=== PATIENT | female | born 1975 | race Caucasian/White ===

== ENCOUNTER 2020-03-20 09:04 | Outpatient (CLI) | payer BC, SELFPAY ==
--- NOTE | 2020-03-20 09:15 | US_ITS ---
WS: [id number] THYROID ULTRASOUND (TI-RADS CRITERIA) History: Follow-up nodules.. Technique: Ultrasound examination of the thyroid and adjacent soft tissues is performed. FINDINGS: RIGHT thyroid lobe: 4.1 x 1.0 x 1.6 cm. LEFT thyroid lobe: 4.0 x 1.4 x 1.3 cm. Isthmus: 0.4 cm. Estimated total number of nodules greater than or equal to 1 cm: 0 Number of spongiform nodules greater than or equal to 2 cm not described below (TR1): 1 (LEFT inferio r lobe). Number of mixed cystic and solid nodules greater than or equal to 1.5 cm not described below (TR2): 0 US/US thyroid [id number] Impression: TR1 Recommendation: No FNA at this time.
== END 2020-03-20 09:05 | disposition home or self-care (01) ==
LOC: US 09:06
PROVIDERS: PCP Family Medicine; Visit Provider Family Medicine
DX: E04.1 Nontoxic single thyroid nodule (principal)
CPT/HCPCS: 76536

== ENCOUNTER → 2020-03-30 16:38 | Outpatient (BNVA) | payer BC, SELFPAY | PROVIDERS: PCP Family Medicine; Visit Provider Dermatology | DX: D48.9 Neoplasm of uncertain behavior, unspecified (principal) | CPT/HCPCS: 88304 ==

== ENCOUNTER → 2020-04-24 10:56 | Outpatient (BNVA) | payer BC, SELFPAY | PROVIDERS: PCP Family Medicine; Visit Provider Dermatology | DX: D48.9 Neoplasm of uncertain behavior, unspecified (principal) | CPT/HCPCS: 88304 ==

== ENCOUNTER 2021-09-08 13:03 | Emergency (ER) | payer BC, SELFPAY ==
[2021-09-08 13:08] VITALS: BP 143/89; PULSE 101; RESP 16; TEMP 36.9; O2SAT 96; BMI 42.0
--- NOTE | 2021-09-08 13:29 | XRR_ITS ---
PROCEDURE INFORMATION: Exam: XR Left Finger(s) Exam date and time: 09/08/2021 1:37 PM Age: 46 years old Clinical indication: Injury or trauma; Dislocation; Left; Patient HX: Fall against wall with outstretched hand - obvious deformity L middle finger; Additional info: Trauma, deformity TECHNIQUE: Imaging protocol: XR Left fingers. Views: Minimum 2 views. COMPARISON: No relevant prior studies available. FINDINGS: Bones/joints: Third digit middle phalanx is subluxed 7 mm ulnarly in relation to the proximal phalanx. There is ulnar angulation as well. Soft tissues: There is edema in the soft tissues. XR/XR finger LT min 2V [id number] IMPRESSION: There are digit middle phalanx is subluxed and angulated ulnarly in relation to the proximal phalanx.
--- NOTE | 2021-09-08 13:30 | ED_ITS ---
HPI - Extremity Injury (Upper) General: Chief Complaint: Extremity Injury, Upper Stated Complaint: finger injury Time Seen by Provider: 09/08/21 13:06 Source: patient Mode of arrival: ambulatory Limitations: no limitations History of Present Illness: Patient is a nice 46-year-old female who presents to ED today for evaluation of a left finger injury and deformity. Patient states she was going up a flight of stairs when she tripped and fell and states she caught the finger on a door and states she immediately noticed deformity. She has no other injuries or complaints at this time. MD complaint: injury to: left and finger Onset (ago): hour(s) Other Extremity Injury: Left: fingers Other injuries: none Place: home Severity: moderate Relieving factors: immobilization Exacerbating factors: movement of extremity Context: direct blow Associated symptoms: Reports no associated symptoms Review of Systems Musc: Reports: extremity pain (L middle finger); Denies: extremity swelling Neuro: Denies: numbness in extremities or sensory changes PFSH ED PFSH: Medical History BCC (basal cell carcinoma of skin) History of non-Hodgkin's lymphoma Hodgkins lymphoma Surgical History History of hysterectomy History of shoulder surgery Family History Other Cancer Social History Smoking and tobacco status: former smoker History of recent travel: No Physical Exam Const: COMMON NORMALS: no acute distress, patient oriented x3, no limitations and alert Extremity: GENERAL: Yes normal exam except as noted LEFT UPPER EXTREMITY: Yes hand & digits (deformity noted to L 3rd PIP joint consistent with fx and/or dislocation) Left hand and digits: Yes neurovascular exam (normal) Neuro: COMMON NORMALS: patient oriented x3 and no sensory deficits noted SENSORIUM/ORIENTATION: Yes alert Procedures Orthopedic Joint Reduction Joint #1: Side: left Joint Reduction Location: finger (L 3rd PIP joint) Analgesia: nerve block Local Anesthesia: lidocaine 1% Amount of anesthesic used (mL): 3.0 Technique used: traction/counter-traction Post-reduction neuro exam: intact Post-reduction vascular: intact Post Reduction X-Ray Obtained: Yes Post Reduction X-Ray Results: reduced Splint Applied: Yes Patient Tolerated Procedure: well Course Vital Signs: Vital signs: Vital Signs Temperature 98.4 F 09/08/21 13:08 Pulse Rate 101 H 09/08/21 13:08 Respiratory Rate 18 09/08/21 13:46 Blood Pressure 143/89 09/08/21 13:08 Pulse Oximetry 96 09/08/21 13:08 MDM - Extremity Injury (Upper) Medical Decision Making PIP joint successfully reduced. Finger splinted. Radiology over-read after DC showed an extremely small bony fragment on one view suspicious for avulsion fracture. I had already placed referral to orthopedics so will have her keep this appointment. Lab Data Radiology Impressions Finger X-Ray 09/08/21 13:52 IMPRESSION: 1. Currently the 3rd digit proximal interphalangeal joint is in satisfactory alignment, status post reduction. 2. There is a tiny curvilinear hyperdensity in the soft tissues adjacent to the head of the 3rd digit proximal phalanx. This is seen only on 1 image however raises concern for a tiny avulsion fracture. Discharge Plan Discharge Patient Disposition: Home Clinical Impression: Closed traumatic PIP dislocation Condition: Stable Prescriptions: New acetaminophen-codeine 300-30 mg tablet 1 tab PO Q6H PRN (Reason: pain) Qty: 10 0RF No Action Erivedge 150 mg capsule 150 mg PO DAILY Qty: 30 4RF escitalopram oxalate [Lexapro] 10 mg tablet 10 mg PO DAILY 0RF multivitamin [Daily Multi-Vitamin] Tablet 1 tab PO DAILY 0RF Zyrtec 10 mg capsule 10 mg PO DAILY 0RF Discharge Orders: Discharge ED (Routine); Ordered 09/08/21 Ordered By: Barbra Zhang Referrals: Kedar Rubi MD [Primary Care Provider] - Patient Instructions: Closed Reduction (ED), Finger Dislocation (ED) Coding Level of Care Code ED [place] Supervisor for [employer] Fwd Exam Expanded Problem Focused
[2021-09-08 13:46] VITALS: RESP 18
[2021-09-08] MEDS: morphine 4 mg/mL SDV 1 mL IM (13:46)
[2021-09-08] MEDS: ondansetron 2 mg/ML SDV 2 mL 4 MG IM (13:47)
--- NOTE | 2021-09-08 13:52 | XRR_ITS ---
PROCEDURE INFORMATION: Exam: XR Left Finger(s) Exam date and time: 09/08/2021 1:59 PM Age: 46 years old Clinical indication: Patient HX: Post reduction L middle finger dislocation; Additional info: Post-reduction TECHNIQUE: Imaging protocol: XR Left fingers. Views: Minimum 2 views. COMPARISON: CR XR finger LT min 2V [id number] 09/08/2021 1:37 PM FINDINGS: Bones/joints: Currently the 3rd digit proximal interphalangeal joint is in satisfactory alignment, status post reduction.There is a tiny curvilinear hyperdensity in the soft tissues adjacent to the head of the 3rd digit proximal phalanx. This is seen only on 1 image however raises concern for a tiny avulsion fracture. Soft tissues: There is edema in the soft tissues. XR/XR finger LT min 2V [id number] IMPRESSION: 1. Currently the 3rd digit proximal interphalangeal joint is in satisfactory alignment, status post reduction. 2. There is a tiny curvilinear hyperdensity in the soft tissues adjacent to the head of the 3rd digit proximal phalanx. This is seen only on 1 image however raises concern for a tiny avulsion fracture.
--- NOTE | 2021-09-10 12:04 | DCPLANNER ---
Addendum entered by Prudence Moreno 10/17/21 21:11: Patient had a follow up appointment scheduled with ortho - patient did attend appointment. Addendum entered by Prudence Moreno 09/11/21 08:18: Patient has a follow up appointment scheduled for Saturday, September 11, 2021 at 11:[address] Gonzalez at ortho. Clinic will call patient with appointment information. Original Note: cook manager had message to schedule a follow up appointment for patient with ortho. cook manager sent patients information to the front staff at ortho thru the [employer] messaging system. Patients information will be printed and reviewed. Clinic will call patient with appointment information.
== END 2021-09-08 14:27 | disposition home or self-care (01) ==
PROVIDERS: Emergency Provider Physician Assistant; PCP Family Medicine
DX: S63.283A Dislocation of proximal interphalangeal joint of left middle finger, initial encounter (principal); W10.8XXA Fall (on) (from) other stairs and steps, initial encounter; Y92.009 Unspecified place in unspecified non-institutional (private) residence as the place of occurrence of the external cause
CPT/HCPCS: 26770; 73140; 96372; 99283; J2270; J2405

== ENCOUNTER → 2021-09-17 09:38 | Outpatient (BNVA) | payer BC, SELFPAY | PROVIDERS: PCP Family Medicine; Visit Provider Obstetrics & Gynecology | DX: N81.10 Cystocele, unspecified (principal); N39.3 Stress incontinence (female) (male) | CPT/HCPCS: 81000 ==

== ENCOUNTER → 2021-10-08 09:53 | Outpatient (BNVA) | payer BC, SELFPAY | PROVIDERS: PCP Family Medicine; Visit Provider Obstetrics & Gynecology | DX: Z01.812 Encounter for preprocedural laboratory examination (principal); N39.3 Stress incontinence (female) (male); N81.10 Cystocele, unspecified | CPT/HCPCS: 80053; 81000; 85025; 86850; 86900 ==

== ENCOUNTER 2021-10-11 08:39 | Observation (INO) | payer BC, SELFPAY ==
--- NOTE | 2021-10-08 14:03 | ANES.PREANE2 ---
Pre-Anesthetic Assessment Height/Weight: Height 1.57 m Weight 104.326 kg Operation Date: 10/11/21 07:00 Proposed Procedures p Anterior Repair augmented with [id number]/n39.3/n81.10(Not Applicable) - Jose Ramon Camarena MD s Sling(Not Applicable) - Jose Ramon Camarena MD Familial anesthetic complications: none Was Beta Maricruz taken within 24 hours: N/A Was Clonidine taken within 24 hours: N/A Social Alcohol (daily) and No tobacco Exam alert, oriented x 3, clear to auscultation bilaterally and regular rate & rhythm Airway Submandibular: within normal limits Cervical ROM: within normal limits Mallampati: Class II Dentition: full CV/HEM h/o lymphoma Metabolic Morbid Obesity Anesthetic Plan ASA status: 2 Anesthesia: General Medications/Allergies Home Medications Medication Instructions Recorded Confirmed Last Taken Type cetirizine 10 mg capsule (Zyrtec) 10 mg PO DAILY 03/30/20 10/08/21 Unknown History escitalopram oxalate 10 mg tablet 10 mg PO DAILY 03/30/20 10/08/21 Unknown History (Lexapro) multivitamin (Daily Multi-Vitamin) 1 tab PO DAILY 03/30/20 10/08/21 Unknown History vismodegib 150 mg capsule 150 mg PO DAILY #30 cap 07/30/21 10/08/21 Unknown Rx (Erivedge) Allergies Allergy/AdvReac Type Severity Reaction Status Date / Time azithromycin [From Zithromax] Allergy rash Verified 10/08/21 13:43 [facility] Anesthesia Medical History BCC (basal cell carcinoma of skin) History of non-Hodgkin's lymphoma Hodgkins lymphoma Surgical History History of hysterectomy History of shoulder surgery Family History Mother Colon cancer, Onset Age: 65 Denies family history of Ovarian cancer Diabetes Clotting disorder Heart disease Hyperlipidemia Breast cancer Anesthesia complication Bleeding disorder Hypertension Uterine cancer Thyroid condition Stroke Social History Smoking and tobacco status: former smoker History of recent travel: No Data Anesthesia Cardiac Studies: No Data to Display
[2021-10-11] VITALS (17 sets, daily range): BP systolic 101–162; BP diastolic 61–98; PULSE 77–98; RESP 15–27; TEMP 36.3–37; O2SAT 93–100
[2021-10-11] MEDS: sodium chloride 0.9% 1,000 ML 30 ML IV (06:21)
[2021-10-11] MEDS: sodium chloride 0.9% 500 ML IV (06:21)
[2021-10-11] MEDS: scopolamine 1.5 Patch 1 PATCH TRANSDERMA (06:22)
--- NOTE | 2021-10-11 06:43 | W.PM.OPSUD ---
Surgery/Procedure H&P Update DATE OF PROCEDURE: October 11, 2021 DATE H&P PERFORMED: 10/08/21 H&P UPDATE INFORMATION: I have reviewed H&P completed within last 30 days, I have examined patient prior to procedure and No changes to prior documentation PREOP DIAGNOSIS: Cystocele stage II, stress urinary incontinence PLANNED PROCEDURE: Operation Date: 10/11/21 07:00 Proposed Procedures p Anterior Repair augmented with [id number]/n39.3/n81.10(Not Applicable) - Jose Ramon Camarena MD s Sling(Not Applicable) - Jose Ramon Camarena MD
--- NOTE | 2021-10-11 06:55 | P.ANESUD_ITS ---
Pre-Anesthetic Update Pre-Anesthetic Assessment: Date of Surgery/Procedure: 10/11/21 Preop Sindy gnosis: Cystocele stage II, stress urinary incontinence Proposed Procedure: Operation Date: 10/11/21 07:00 Proposed Procedures p Anterior Repair augmented with [id number]/n39.3/n81.10(Not Applicable) - Jose Ramon Camarena MD s Sling(Not Applicable) - Jose Ramon Camarena MD Any changes to Pre-Anesthetic Assessment?: No Last Intake: Intake Last Liquid Date 10/10/21 Last Liquid Time 21:00 Last Solid Date 10/10/21 Last Solid Time 19:00 Vitals: Temperature 98.0 F 10/11/21 06:09 Temperature Source Temporal Artery S can 10/11/21 06:09 Pulse Rate 77 10/11/21 06:09 Respiratory Rate 18 10/11/21 06:09 Blood Pressure 125/89 10/11/21 06:09 Blood Pressure Sisi n 101 10/11/21 06:09 Pulse Oximetry 95 10/11/21 06:09 Oxygen Delivery Me thod 10/11/21 06:10 Exam: Pre-Anes Outpt Exam: alert, oriented x 3, clear to auscultation bilaterally and regular rate & rhythm Cardiac Studies: No Data to Display
[2021-10-11] MEDS: estrogens Conjugated Cream 30 gm 30 APPLIC (08:21)
--- NOTE | 2021-10-11 08:30 | PM.OP ---
Operative Report Date of procedure: October 11, 2021 Pre-op diagnosis: Preop Diagnosis Cystocele stage II, stress urinary incontinence Post-op diagnosis: Same as above Procedure done: Anterior colporrhaphy augmented with allograft. Single incision mid urethral sling. Cystoscopy. Implants: Coloplast mid urethral sling Specimens removed/disposition: None Pathology: None Estimated blood loss (mL): 100 IV fluids (mL): 600 Urine output (mL): 400 Complications: None. Findings: Cystocele stage III Procedure: After obtaining informed consent, the patient was taken to the operating room and placed in the supine position, given general anesthesia, and prepped and draped in sterile fashion. The abdomen, vulva and vagina were prepped and draped in a sterile manner. A time out procedure was performed. The anterior vaginal mucosa beneath the midurethra was infiltrated with 0.5% Marcaine with epinephrine. A vertical midline incision was made beneath the midurethra, nearly 1.5 cm length. Careful submucosal dissection was performed bilaterally up to the interior portion of the inferior pubic ramus. The insertion of adductor longus tendon on the patient?s pubic ramus was identified as reference land yessenia. Palpated the notch along the internal edge of ischiopubic ramus where the adductor longus tendon and the inferior pubic ramus meet. The Altis single incision sling (SIS) was selected. Then the needle of the SIS inserted aiming at the location of this notch. One of the integrated self-fixating tips place onto the needle by sliding it over the end of the needle. The needle/sling assembly was inserted toward the location of identified reference notch making sure that the flat of the handle is perpendicular to the desired path. The needle was tracked along the posterior surface of the ischiopubic ramus until the midline yessenia on the mesh is approximately at the midline position under the urethra. The needle was removed and the same was repeated on the contralateral side until the appropriate sling tension under the urethra was achieved ensuring that the mesh lays flat. The needle was removed and vaginal incision was closed in a running interlocking fashion with 2-0 Vicryl. Then proceeded to perform the anterior colporrhaphy. The vaginal mucosa was then injected in the midline with normal saline. The vaginal mucosa was scored in the midline with the Bovie approximately 1 cm medial to the urethral meatus to 1 cm distal to the [vaginal cuff/cervix]. This vaginal mucosa was then undermined and then incised in the midline with the Metzenbaum scissors. The lateral aspects of the vaginal mucosa were then grasped with the Allis clamps and the vaginal mucosa was then dissected off the underlying fascia with the Metzenbaum scissors. Again, there was noted to be quite a bit of oozing at the incision, which was controlled with cautery. After adequate dissection was performed, bilaterally. The Coloplast allograft was modified at time of application to fit spacea, 3 x 3 cm piece . The allograft was placed in front of cystocele ready to be implanted. Suture is placed at distal end of graft and placed towards vaginal cuff. Final suture is placed on proximal portion of the graft to complete the placement overlying the bladder. Then Interrupted vertical mattress sutures of 0 Vicryl were used to elevate the cystocele superiorly. The excessive vaginal mucosa was then trimmed with the Metzenbaum scissors and the vaginal mucosa was then reapproximated in the running interlocking fashion with 2-0 Vicryl. Then the Miranda catheter was removed and cystoscope was inserted. The bladder was filled with sterile water. Complete evaluation of the bladder mucosa was performed noting no lacerations, dimpling, tears, bleeding of the mucosa or muscular layers. Both ureteral orifices were identified. Prompt excretion of urine from both ureteral orifices was noted. Cystoscope was withdrawn. The Miranda catheter was replaced. Excellent hemostasis was obtained. A vaginal pack is placed overnight as postoperative support for the vaginal tissues after graft placement and closure of vaginal incisions. Sponge, lap, needle, and instrument counts were correct times three. The patient was taken to the recovery room, awake and in stable condition.
--- NOTE | 2021-10-11 08:40 | SUR.PHASEI ---
0830 PT TO PACU 5 PT AWAKES TO VOICE, GOOD RESPIRATORY EFFORT, SATS 97-100% ON 8LMASK, ABDOMEN SOFT WITH VAGINAL PACKING IN PLACE, LAI TO DEPENDANT DRAINAGE WITH CLEAR URINE TO TUBING AND BAG, STATLOCK TO RT INNER THIGH, BILAT SCDS ON , IV TO LT HAND @20 WITH NS 500ML UP AT KVO RATE PER GRAVITY. PT ID BAND TO RT WRIST ,PT ID'D WITH 2 IDENTIFIERS. MONITOR SR NO ECTOPY
--- NOTE | 2021-10-11 08:46 | SUR.PHASEI ---
WARM BLANKETS TO PT ,PT COMPLAINS OF PAIN/PRESSURE OF 7/10 TO SHAY AREA. SEE MED GIVEN
[2021-10-11] MEDS: fentaNYL 50 mcg/mL INJ 2mL IVP (08:48)
--- NOTE | 2021-10-11 09:01 | SUR.PHASEI ---
PT AWAKE ALERT HOB NOW AT 30 DEGREES, PT TAKING ICE CHIP, PT UPDATED AND WILL DRIVE TO ER PARKING LOT AND MEET US IN OB. VSS ABDOMEN SOFT AND UNCHANGED , NO BLEEDING NOTED.
--- NOTE | 2021-10-11 09:15 | SUR.PHASEI ---
PT AWAKE ALERT , DENIES PAIN AND NAUSEA, PT IN HOLDING WAITITNG TO GIVE REPORT TO OB FLOOR.
[2021-10-11] MEDS: ketorolac 30 mg/mL INJ IVP ×3 (10:42→23:56)
[2021-10-11] MEDS: escitalopram 10 mg Tablet PO (10:43)
[2021-10-11] MEDS: docusate sodium 100 mg Capsule PO ×2 (10:43→17:55)
[2021-10-11] MEDS: dextrose 5%-lactated ringers 1,000 ML 125 ML IV (12:04)
[2021-10-11] MEDS: HYDROcodone-acetaminophen 5-325 mg Tablet PO ×2 (14:00→19:55)
[2021-10-12 04:00] VITALS: BP 105/60; PULSE 76; RESP 16
[2021-10-12 05:09] LABS: Hematocrit 40.5 % (37.0-47.0); Hemoglobin 13.3 g/dL (11.5-15.3); Mean Corpuscular HGB Conc 32.8 g/dL (30.0-36.0); Mean Corpuscular Hemoglobin 31.4 pg (28.0-34.0); Mean Corpuscular Volume 95.5 fl (81-99); Mean Platelet Volume 10.6 fL (7.4-10.4); Platelet Count 234 10^3/cmm (130-400); Red Blood Count 4.24 10^6/uL (4.1-5.3); Red Cell Distribution Width 14.4 % (12.1-15.1); White Blood Count 12.6 10^3/uL (4.0-10.0)
[2021-10-12 07:40] VITALS: PULSE 76; RESP 16
[2021-10-12] MEDS: cetirizine 10 mg Tablet PO (08:44)
[2021-10-12] MEDS: ibuprofen 800 mg tablet PO (08:44)
[2021-10-12] MEDS: docusate sodium 100 mg Capsule PO (08:44)
[2021-10-12] MEDS: escitalopram 10 mg Tablet PO (08:44)
[2021-10-12 10:05] VITALS: BP 110/68; PULSE 80; RESP 16; TEMP 36.6; O2SAT 96
[2021-10-12] MEDS: HYDROcodone-acetaminophen 5-325 mg Tablet PO (11:21)
--- NOTE | 2021-10-12 11:55 | P.DS_ITS ---
Discharge Providers NANNY BABYSITTER Date of Admission: 10/11/21 08:39 Date of Discharge: 10/12/21 Attending Provider at Admission: Jose Ramon Camarena MD Attending Provider at Discharge: Jose Ramon Camarena MD Primary NANNY BABYSITTER: Jose Ramon Camarena MD Primary Care Provider: Kedar Rubi MD Reason for Visit Reason for Visit: stage 2 cystocele, MARCUS Hospital Course Hospital Course Mrs. King was 46-year-old female with a history of cystocele stage III associated with stress urinary incontinence. Admitted for planned anterior colporrhaphy augmented with allograft and single incision mid urethral sling. The procedures were performed without complication. Postop observation was uneventful. PVR within normal limits. Urine output adequate. She is afebrile hemodynamically stable postoperative day 1. Tolerating diet well. Ambulating without difficulty. Physical Exam Narrative: GA: Alert and oriented ?3. HEENT: WNL. Heart: Regular rate and rhythm. Lungs: Clear to auscultation bilaterally. Abdomen: Bowel sounds present, nontender. BUSINESS SERVICES SALES AGENT: spotting bleeding. Extremities: No edema, no cyanosis, no calves pain. Urinary Catheter Management: Miranda: Cath Placed During This Visit: yes, but has since been removed by the nurse Reason for Continuing Indwelling Catheter: Decision to DC Catheter Urinary Catheter Date of Insertion: 10/11/21 Urinary Catheter Time of Insertion: 07:44 Date Urinary Catheter Removed: 10/12/21 Time Urinary Catheter Discontinued: 04:50 History History History 3 Term 2 Miscarriages/Ectopic 1 0 Living Children 2 Discharge Data Studies Completed and Pending Pending at discharge Category Date Time Status ES surgery / GI images Routine Exams 10/11/21 06:44 Taken Laboratory Results WBC 12.6 10^3/uL (4.0-10.0) H 10/12/21 04:55 RBC 4.24 10^6/uL (4.1-5.3) 10/12/21 04:55 Hgb 13.3 g/dL (11.5-15.3) 10/12/21 04:55 Hct 40.5 % (37.0-47.0) 10/12/21 04:55 MCV 95.5 fl (81-99) 10/12/21 04:55 MCH 31.4 pg (28.0-34.0) 10/12/21 04:55 MCHC 32.8 g/dL (30.0-36.0) 10/12/21 04:55 RDW 14.4 % (12.1-15.1) 10/12/21 04:55 Plt Count 234 10^3/cmm (130-400) 10/12/21 04:55 MPV 10.6 fL (7.4-10.4) H 10/12/21 04:55 Vitals Last Vital Signs Temp 97.9 F 10/12/21 10:05 Pulse 80 10/12/21 10:05 Resp 16 10/12/21 10:05 BP 110/68 10/12/21 10:05 Pulse Ox 96 10/12/21 10:05 Discharge Plan Discharge Patient Disposition: Home Condition: Stable Prescriptions: New hydrocodone-acetaminophen 5-325 mg tablet 1 tab PO Q4H PRN (Reason: pain) Qty: 15 0RF acetaminophen 325 mg capsule 325 mg PO Q4H PRN (Reason: fever or pain) Qty: 60 0RF docusate sodium [Colace] 100 mg capsule 100 mg PO BID Qty: 30 0RF ibuprofen 800 mg tablet 800 mg PO TID PRN (Reason: pain) Qty: 60 0RF Continued Erivedge 150 mg capsule 150 mg PO DAILY Qty: 30 4RF escitalopram oxalate [Lexapro] 10 mg tablet 10 mg PO DAILY 0RF multivitamin [Daily Multi-Vitamin] Tablet 1 tab PO DAILY 0RF Zyrtec 10 mg capsule 10 mg PO DAILY 0RF Discharge Orders: Discharge Order (Routine); Ordered 10/12/21 Ordered By: Jose Ramon Camarena Referrals: Jose Ramon Camarena MD [Physician] - 2 weeks Discharge Diet: Advance as tolerated and Usual diet Discharge Activity: Limit activity as instructed Patient Instructions: Opioid Safety, Bladder Sling for Women (GEN), Anterior Vaginal Repair (GEN) Activity Restrictions/Additional Instructions: 1. Please call [facility] on next working day to make your post-operative appointment in 2 weeks. 2. Please stay home until you come back to the clinic on first post-operative check up. 3. Please follow instructions on your medications CAREFULLY. 4. If you have abdominal incision, do not cover it unless dressing is necessary because of drainage. OK to shower, but avoid bath. Leave steri-strips until they fall off. If they are still on one week after surgery, you may remove them. 5. If you had vaginal surgery or vaginal repair, Dr. Camarena may instruct you to take SITZ bath. 6. Yellow, blood tinged odorous vaginal discharge is usually normal after hysterectomy or vaginal surgeries. 7. No sexual intercourse, tampons, or douches until you are completely released from the post-operative care. 8. Avoid constipation by eating right and maybe using some Metamucil or Milk of Magnesia. 9. All prescription refills are given during the working hours. Please do no wait till it runs out. Call the clinic at [phone] before your medication runs out. The clinic will get in touch with your doctor to prescribe medications if necessary. 10. Please remain within 40 mile radius from our hospital because emergencies do happen now and then during the post-operative period. 11. If you have stairs at home, take one step at a time slowly and minimize the number of trips. It helps to stay in one floor for the next few days. No lifting except what you can lift by one hand until you are released from the post-operative care. 12. Driving is discouraged until you are well healed. It may be 3-4 weeks be fore you feel strong enough to drive. You should be able to turn and look through the rear window without pain and you should be able to push the brake pedal very hard without pain before you drive. No fast rules, but SAFETY should be your primary concern. DO NOT drive if you are on sedating medications such as narcotics. 13. Call the clinic (during working hours) to make urgent appointment or go to the Emergency room, if any of the following occurs: i. Vaginal bleeding becomes heavy, more than a period. ii. Incision becomes red and sore, or drains pus. iii. Your temperature is over 100.4 or you have chill. iv. IV site becomes red and swollen (a little ``knot?? is usually OK) v. Persistent nausea and vomiting vi. Persistent constipation or diarrhea vii. Rash or allergic reaction to medications. Discharge Attestations NANNY BABYSITTER Time Spent in Discharge Care*: greater than 30 min Coding Level of Care Code Acute Jitterbug Operator for Chaz Porter
== END 2021-10-12 12:25 | disposition home or self-care (01) ==
LOC: OBGYN 08:39
PROVIDERS: Admitting Provider Obstetrics & Gynecology; PCP Family Medicine; Visit Provider Obstetrics & Gynecology
PROC: 0JQC0ZZ Repair Pelvic Region Subcutaneous Tissue and Fascia, Open Approach (ICD-10-PCS; CPT 57240; principal; 2021-10-11 07:00)
PROC: (CPT 57288; 2021-10-11 07:00)
PROC: 0TJB8ZZ Inspection of Bladder, Via Natural or Artificial Opening Endoscopic (ICD-10-PCS; CPT 52000; 2021-10-11 07:00)
DX: N81.10 Cystocele, unspecified (principal); N39.3 Stress incontinence (female) (male); E66.01 Morbid (severe) obesity due to excess calories; Z68.41 Body mass index [BMI] 40.0-44.9, adult; Z87.891 Personal history of nicotine dependence
CPT/HCPCS: 57240; 57288; 36415; 85027; C1713; C1762; G0378; J0690; J1100; J1200; J1885; J2250; J2405; J2704; J3010; J7030; J7040

== ENCOUNTER → 2022-01-14 12:45 | Outpatient (BNVA) | payer BC, SELFPAY | PROVIDERS: PCP Family Medicine; Visit Provider Family Medicine | DX: J02.9 Acute pharyngitis, unspecified (principal) | CPT/HCPCS: 87070 ==

== ENCOUNTER → 2022-03-07 07:57 | Outpatient (BNVA) | payer BC, SELFPAY | PROVIDERS: PCP Family Medicine; Visit Provider Family Medicine | DX: Z00.00 Encounter for general adult medical examination without abnormal findings (principal); E78.5 Hyperlipidemia, unspecified; E04.1 Nontoxic single thyroid nodule | CPT/HCPCS: 80053; 80061; 84443 ==

== ENCOUNTER 2022-03-15 09:48 | Outpatient (CLI) | payer BC, SELFPAY ==
--- NOTE | 2022-03-15 09:54 | MM_ITS ---
WS: [id number] BILATERAL SCREENING DIGITAL TOMOSYNTHESIS MAMMOGRAM WITH CAD HISTORY: screening COMPARISON: 07/06/2018 and 03/15/2015 Bilateral CC and MLO views with tomosynthesis and synthetic mammography submitted. Computer aided det ection analyzed. Breast composition: There are scattered areas of fibroglandular density. No suspicious masses, microc alcifications or architectural distortion. MM/[place] [id number] IMPRESSION: BI-RADS: 1-Negative FOLLOW UP: 1 Year Follow-up
== END 2022-03-15 09:49 | disposition home or self-care (01) ==
LOC: RAD 09:50
PROVIDERS: PCP Family Medicine; Visit Provider Family Medicine
DX: Z12.31 Encounter for screening mammogram for malignant neoplasm of breast (principal)
CPT/HCPCS: 77063; 77067

== ENCOUNTER 2022-04-22 12:26 | Emergency (ER) | payer BC, SELFPAY ==
[2022-04-22 13:15] VITALS: BP 149/79; PULSE 91; RESP 14; TEMP 36.6; O2SAT 97
[2022-04-22 13:42] VITALS: BP 148/86; PULSE 97; RESP 12; TEMP 36.8; O2SAT 95; BMI 43.9
--- NOTE | 2022-04-22 17:13 | W.ED.EXTPRO ---
HPI - Extremity Problem General: Chief complaint: Extremity Problem,Nontraumatic Stated complaint: Pain on right leg and right hib Time Seen by Provider: 04/22/22 17:13 History of Present Illness: Ms. Chase is a 46-year-old female with history of obesity, history of non-Hodgkin's lymphoma, hyperlipidemia, depression presenting to the emergency department due to right low back and hip pain. She reports atraumatic onset of symptoms approximately 2 weeks ago with low back pain that radiates around to the medial aspect of her right thigh. Worse with ambulation, palpation, movement, range of motion. Intensity is worsened is now moderate to severe. Has tried home medications and treatments without significant relief. Denies frequent episodes in the past. No other specific changes in health, exacerbating, or alleviating factors identified. Onset (ago): week(s) Pain Consistency: constant Location: right and other Quality: aching and sharp Radiation: other Relieving factors: nothing Exacerbating factors: range of motion, weight bearing and palpation Associated symptoms: Reports no associated symptoms Review of Systems General: Reports: 10 or more systems reviewed and unremarkable except in HPI and below PFSH ED PFSH: Medical History BCC (basal cell carcinoma of skin) Depression Encounter for wellness examination History of non-Hodgkin's lymphoma Hodgkins lymphoma Hyperlipidemia Thyroid nodule Surgical History H/O bladder repair surgery History of hysterectomy History of shoulder surgery Family History Mother Colon cancer, Onset Age: 65 Denies family history of Ovarian cancer Diabetes Clotting disorder Heart disease Hyperlipidemia Breast cancer Anesthesia complication Bleeding disorder Hypertension Uterine cancer Thyroid condition Stroke Social History Smoking and tobacco status: former smoker History of recent travel: No Physical Exam Const: COMMON NORMALS: alert GENERAL APPEARANCE: cooperative and well developed HENMT: COMMON NORMALS: normocephalic and atraumatic HEAD & SCALP: normocephalic and atraumatic THROAT: posterior oropharynx normal Eye: COMMON NORMALS: conjunctivae normal CONJUNCTIVA: Yes conjunctivae normal SCLERA: sclerae normal Neck/C-Spine: COMMON NORMALS: supple GENERAL: Yes trachea midline Resp: COMMON NORMALS: clear to auscultation bilaterally EFFORT & INSPECTION: Yes able to speak in complete sentences AUSCULTATION: clear to auscultation bilaterally Cardio: COMMON NORMALS: regular rate and regular rhythm RATE: regular rate RHYTHM: regular rhythm GI: COMMON NORMALS: Soft to palpation PALPATION: Yes Soft to palpation, Yes Tenderness to palpation present (GI), No Guarding due to palpation present (GI) and No Rigid due to palpation Extremity: NARRATIVE EXTREMITY EXAM: Tender to palpation on right hip. Distal CMS intact. GENERAL: Yes normal exam except as noted and No edema Neuro: COMMON NORMALS: moves all extremities SENSORIUM/ORIENTATION: Yes alert and No Orientation impaired Psych: COMMON NORMALS: mental status grossly normal and Normal thought process present THOUGHT PROCESS: Normal thought process present Course Vital Signs: Vital signs: Vital Signs Temperature 98.2 F 04/22/22 13:42 Pulse Rate 88 04/22/22 21:59 Respiratory Rate 18 04/22/22 21:59 Blood Pressure 117/75 04/22/22 21:59 Pulse Oximetry 98 04/22/22 21:59 MDM - Extremity (Nontraumatic) Medical Decision Making 46-year-old lady presenting with nontraumatic extremity pain. Exam as above. No significant hematologic or metabolic panel abnormality to explain symptoms. Urinalysis with squamous epithelial contamination. Hematuria present and discussed with patient. X-rays negative for acute fracture or other clear cause of symptoms. CT abdomen pelvis with no acute finding. Patient improved with ED treatment of morphine, Valium, Toradol, Solu-Medrol. Most likely etiology of patient's pain is radicular back pain. The results of ED evaluation were discussed with the patient including prescriptions and/or symptomatic cares (if applicable) including appropriate and responsible use, followup plan, and return precautions. The patient verbalized understanding and felt safe for discharge. Medical Records I reviewed the patient's medical records. Lab Data I reviewed the patient's lab results. 04/22/22 17:55 04/22/22 17:55 Radiology Impressions Hip/Pelvis X-Ray 04/22/22 17:30 IMPRESSION: No acute findings. Lumbar Spine X-Ray 04/22/22 17:30 IMPRESSION: No acute findings. Abdomen/Pelvis CT 04/22/22 20:37 IMPRESSION: 1. No acute findings. Laboratory Results WBC 9.3 10^3/uL (4.0-10.0) 04/22/22 17:55 RBC 4.74 10^6/uL (4.1-5.3) 04/22/22 17:55 Hgb 14.9 g/dL (11.5-15.3) 04/22/22 17:55 Hct 45.9 % (37.0-47.0) 04/22/22 17:55 MCV 96.8 fl (81-99) 04/22/22 17:55 MCH 31.4 pg (28.0-34.0) 04/22/22 17:55 MCHC 32.5 g/dL (30.0-36.0) 04/22/22 17:55 RDW 14.6 % (12.1-15.1) 04/22/22 17:55 Plt Count 289 10^3/cmm (130-400) 04/22/22 17:55 MPV 10.5 fL (7.4-10.4) H 04/22/22 17:55 Neut % (Auto) 68.8 % 04/22/22 17:55 Lymph % (Auto) 21.8 % 04/22/22 17:55 [place] % (Auto) 7.1 % 04/22/22 17:55 Eos % (Auto) 1.0 % 04/22/22 17:55 Baso % (Auto) 0.9 % 04/22/22 17:55 Neut # (Auto) 6.38 10^3/uL (1.8-7.7) 04/22/22 17:55 Lymph # (Auto) 2.0 10^3/uL (0.8-4.8) 04/22/22 17:55 [place] # (Auto) 0.7 10^3/uL (0.2-0.9) 04/22/22 17:55 Eos # (Auto) 0.1 10^3/uL (0.0-0.8) 04/22/22 17:55 Baso # (Auto) 0.1 10^3/uL (0.0-0.1) 04/22/22 17:55 Nucleated RBC % (auto) 0 % 04/22/22 17:55 Nucleated RBCs # 0.0 /100WBC 04/22/22 17:55 Sodium 133 mmol/L (136-145) L 04/22/22 17:55 Potassium 3.7 mmol/L (3.5-5.1) 04/22/22 17:55 Chloride 99 mmol/L (98-107) 04/22/22 17:55 Carbon Dioxide 23 mmol/L (22-29) 04/22/22 17:55 Anion Gap 14.7 (5-19) 04/22/22 17:55 BUN 12 mg/dL (6-20) 04/22/22 17:55 Creatinine 0.8 mg/dL (0.5-0.9) 04/22/22 17:55 GFR Calculation 76.6 mL/min (90-130) L 04/22/22 17:55 Glucose 72 mg/dL (65-115) 04/22/22 17:55 Calculated Osmolality 274 mOsm/kg (285-295) L 04/22/22 17:55 Calcium 8.7 mg/dL (8.5-10.5) 04/22/22 17:55 Total Bilirubin 0.4 mg/dL (0.15-1.2) 04/22/22 17:55 AST 20 U/L (0-32) 04/22/22 17:55 ALT 16 U/L (0-33) 04/22/22 17:55 Alkaline Phosphatase 104 U/L (35-105) 04/22/22 17:55 Total Protein 7.3 g/dL (6.6-8.7) 04/22/22 17:55 Albumin 3.7 g/dL (3.5-5.2) 04/22/22 17:55 Globulin 3.6 g/dL (1.3-4.6) 04/22/22 17:55 Lipase 21 U/L (13-60) 04/22/22 17:55 Urine Color Yellow (Yellow) 04/22/22 19:36 Urine Appearance Clear (CLEAR) 04/22/22 19:36 Urine pH 5 (5-7) 04/22/22 19:36 Ur Specific [place] 1.025 (1.005-1.030) 04/22/22 19:36 Urine Protein Neg (Negative) 04/22/22 19:36 Urine Glucose (UA) Norm (Normal) 04/22/22 19:36 Urine Ketones 2+ (Negative) H 04/22/22 19:36 Urine Blood 2+ (Negative) H 04/22/22 19:36 Urine Nitrate Negative (Negative) 04/22/22 19:36 Urine Bilirubin Neg (Negative) 04/22/22 19:36 Urine Urobilinogen Norm mg/dL (Negative) 04/22/22 19:36 Ur Leukocyte Esterase Negative (Negative) 04/22/22 19:36 Urine RBC 0-4 /hpf (0-2) H 04/22/22 19:36 Urine WBC None /hpf (0-5) 04/22/22 19:36 Ur Squamous Epith Cells 5-10 /hpf (0-5) H 04/22/22 19:36 Amorphous Sediment Not Reportable 04/22/22 19:36 Urine Bacteria 4+ /hpf (NONE) H 04/22/22 19:36 Discharge Plan Discharge Patient Disposition: Home Clinical Impression: Lumbar radicular pain, Hematuria Condition: Stable Prescriptions: New oxycodone 5 mg tablet 5 mg PO Q4H PRN (Reason: pain) Qty: 10 0RF No Action multivitamin [Daily Multi-Vitamin] Tablet 1 tab PO QAM bupropion HCl [Wellbutrin XL] 150 mg tablet extended release 24 hr 150 mg PO QAM Qty: 30 11RF prednisone 20 mg tablet 20 mg PO DAILY Qty: 15 0RF Rx Instructions: 60mg x 3 days 40mg x 2 days 20mg x 2 days alprazolam [Xanax] 0.25 mg tablet 0.25 mg PO BID PRN (Reason: Anxiety) Erivedge 150 mg capsule 150 mg PO DIRECTED Qty: 21 4RF Rx Instructions: Take 1 PO DAILY FOR 1 week then off for 2 weeks - repeat hydrocodone-acetaminophen 5-325 mg tablet 1 - 2 tab PO Q4H PRN (Reason: pain) 5 Days Qty: 40 0RF diazepam [Valium] 2 mg tablet 5 mg PO TID PRN (Reason: muscle spasm) Qty: 30 0RF acetaminophen 325 mg capsule 325 mg PO Q4H PRN (Reason: fever or pain) Qty: 60 0RF esomeprazole magnesium [Nexium] 20 mg Capsule,Delayed Release(Dr/Ec) 20 mg PO DAILY PRN (Reason: Acid Reflux) Zyrtec 10 mg Tablet 10 mg PO DAILY PRN (Reason: Allergy Symptoms) ibuprofen 800 mg tablet 800 mg PO TID PRN (Reason: Pain) Lexapro 10 mg tablet 10 mg PO QAM Discharge Orders: Discharge ED (Routine); Ordered 04/22/22 Ordered By: Guicho Khan Referrals: Kedar Rubi MD [Primary Care Provider] - Discharge Diet: Usual diet Discharge Activity: Increase activity as tolerated Patient Instructions: Lumbar Radiculopathy (ED), Opioid Safety, Pain Management Activity Restrictions/Additional Instructions: Thank you for visiting the emergency department. You were seen and evaluated for back and hip pain. The exact cause of your symptoms is unclear though may be related to lumbar radiculopathy. We are pleased that he got improvement with treatment. He should continue to use [id number] medications, please keep in mind that many namebrand medications contain the same active ingredients. Additionally I will prescribe Valium for the muscular component and oxycodone for when pain is uncontrolled. 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 Please follow-up with your primary care provider. I recommend repeat urinalysis for evaluation of hematuria. Return to the emergency department for uncontrolled pain, any new neurologic changes, inability to control bowel or bladder, numbness in the perennial or inner thigh region, or anything else that you are concerned about a feel needs emergency department evaluation. Coding Level of Care Code ED Winding Inspector And Tester for Chaz Porter
--- NOTE | 2022-04-22 17:30 | XRR_ITS ---
PROCEDURE INFORMATION: Exam: XR Lumbosacral Spine Exam date and time: 04/22/2022 5:36 PM Age: 46 years old Clinical indication: Low back pain TECHNIQUE: Imaging protocol: Radiologic exam of the lumbosacral spine. Views: 2 or 3 views. COMPARISON: MR lumbar spine wo con* [id number] 03/05/2017 6:35 AM FINDINGS: Bones/joints: The vertebral body stature is maintained. No fracture. Trace anterior degenerative subluxation of L4 on L5. Mild degenerative endplate changes at L3-L4. Soft tissues: Unremarkable. XR/XR lumbar spine 2-3V* [id number] IMPRESSION: No acute findings.
--- NOTE | 2022-04-22 17:30 | XRR_ITS ---
PROCEDURE INFORMATION: Exam: XR Right Hip Exam date and time: 04/22/2022 5:36 PM Age: 46 years old Clinical indication: Hip pain; Right hip; Additional info: Hip pain, worse with rom and ambulation TECHNIQUE: Imaging protocol: Radiologic exam of the Right hip. Views: 1 view hip with pelvis when performed. COMPARISON: MR lumbar spine wo con* [id number] 03/05/2017 6:35 AM FINDINGS: Bones/joints: The bones are intact and in normal alignment. Bone island in the right femoral head. Soft tissues: Unremarkable. XR/XR hip RT 2-3V wo/w pel* [id number] IMPRESSION: No acute findings.
[2022-04-22 18:06] LABS: Basophils # 0.1 10^3/uL (0.0-0.1); Basophils % 0.9 %; Eosinophils # 0.1 10^3/uL (0.0-0.8); Hematocrit 45.9 % (37.0-47.0); Hemoglobin 14.9 g/dL (11.5-15.3); Lymphocytes % 21.8 %; Mean Corpuscular HGB Conc 32.5 g/dL (30.0-36.0); Mean Corpuscular Hemoglobin 31.4 pg (28.0-34.0); Mean Corpuscular Volume 96.8 fl (81-99); Mean Platelet Volume 10.5 fL (7.4-10.4); Monocytes # 0.7 10^3/uL (0.2-0.9); Monocytes % 7.1 %; Neutrophils # 6.38 10^3/uL (1.8-7.7); Neutrophils % 68.8 %; Nucleated Red Blood Cells % 0 %; Platelet Count 289 10^3/cmm (130-400); Red Blood Count 4.74 10^6/uL (4.1-5.3); Red Cell Distribution Width 14.6 % (12.1-15.1); White Blood Count 9.3 10^3/uL (4.0-10.0)
[2022-04-22 18:38] LABS: Alanine Aminotransferase 16 U/L (0-33); Albumin Level 3.7 g/dL (3.5-5.2); Alkaline Phosphatase 104 U/L (35-105); Anion Gap 14.7 (5-19); Aspartate Amino Transferase 20 U/L (0-32); Blood Urea Nitrogen 12 mg/dL (6-20); Calcium 8.7 mg/dL (8.5-10.5); Carbon Dioxide 23 mmol/L (22-29); Chloride 99 mmol/L (98-107); Globulin 3.6 g/dL (1.3-4.6); Glomerular Filtration Rate 76.6 mL/min (90-130); Glucose 72 mg/dL (65-115); Lipase 21 U/L (13-60); Osmolality Calculated 274 mOsm/kg (285-295); Potassium 3.7 mmol/L (3.5-5.1); Sodium 133 mmol/L (136-145); Total Bilirubin 0.4 mg/dL (0.15-1.2); Total Protein 7.3 g/dL (6.6-8.7)
[2022-04-22] MEDS: diazePAM 2 mg Tablet PO (18:51)
[2022-04-22] MEDS: morphine 4 mg/mL SDV 1 mL IVP (18:58)
[2022-04-22] MEDS: ketorolac 30 mg/mL INJ 15 MG IVP (18:58)
[2022-04-22 20:14] LABS: Add Urine Microscopic? YES; Bilirubin Urine Neg (Negative); Blood Urine 2+ (Negative); Glucose Urine UA Norm (Normal); Ketones Urine 2+ (Negative); Leukocyte Esterase Urine Negative (Negative); Nitrate Urine Negative (Negative); Protein Urine Neg (Negative); Specific Gravity, Urine 1.025 (1.005-1.030); Urine Appearance Clear (CLEAR); Urine Color Yellow (Yellow); Urobilinogen Urine Norm (Negative); pH Urine 5 (5-7)
[2022-04-22 20:15] LABS: Add Urine Culture? Yes; Bacteria Urine 4+ /hpf; RBC Urine 0-4 /hpf (0-2)
--- NOTE | 2022-04-22 20:37 | CTR_ITS ---
PROCEDURE INFORMATION: Exam: CT Abdomen And Pelvis Without Contrast Exam date and time: 04/22/2022 8:46 PM Age: 46 years old Clinical indication: Abdominal pain; Right; Prior surgery; Surgery type: Hysterectomy. Bladder; Patient HX: RT flank pain with micro hematuria. History of lymphoma. ; Additional info: R flank pain, hematuria TECHNIQUE: Imaging protocol: Computed tomography of the abdomen and pelvis without contrast. Radiation optimization: All CT scans at this facility use at least one of these dose optimization techniques: automated exposure control; mA and/or kV adjustment per patient size (includes targeted exams where dose is matched to clinical indication); or iterative reconstruction. COMPARISON: CR XR hip RT 2-3V wo/w pel* [id number] 04/22/2022 5:36 PM RADIATION DOSE METRICS: Total DLP (mGy-cm): 1104.35 FINDINGS: Lungs: Mild atelectasis or scar in the anterior left lung base. Liver: Normal. No mass. Gallbladder and bile ducts: Normal. No calcified stones. No ductal dilation. Pancreas: Normal. No ductal dilation. Spleen: Normal. No splenomegaly. Adrenal glands: Normal. No mass. Kidneys and ureters: Normal. No hydronephrosis. Stomach and bowel: Unremarkable. No obstruction. No mucosal thickening. Appendix: The appendix is visualized and is normal. Intraperitoneal space: Unremarkable. No free air. No significant fluid collection. Vasculature: Unremarkable. No abdominal aortic aneurysm. Lymph nodes: Unremarkable. No enlarged lymph nodes. Urinary bladder: Unremarkable as visualized. Reproductive: Hysterectomy. The ovaries are unremarkable. Bones/joints: Unremarkable. No acute fracture. Soft tissues: Tiny fat containing umbilical hernia. CT/CT kidney stone [id number] IMPRESSION: 1. No acute findings.
[2022-04-22 21:59] VITALS: BP 117/75; PULSE 88; RESP 18; O2SAT 98
== END 2022-04-22 21:59 | disposition home or self-care (01) ==
PROVIDERS: Emergency Provider Emergency Medicine; PCP Family Medicine
DX: M54.50 Low back pain, unspecified (principal); R31.9 Hematuria, unspecified
CPT/HCPCS: 36415; 72100; 73502; 74176; 80053; 81001; 83690; 85025; 87086; 96374; 96375; 99285; J1885; J2270; J2930

== ENCOUNTER 2022-04-23 19:38 | Emergency (ER) | payer BC, SELFPAY ==
[2022-04-23 19:54] VITALS: BP 130/85; PULSE 115; RESP 16; TEMP 36.6; O2SAT 96
[2022-04-23 21:14] VITALS: BP 146/86; PULSE 103; RESP 18; O2SAT 97
--- NOTE | 2022-04-23 22:30 | W.ED.BACK ---
HPI - Back Pain/Injury General: Chief Complaint: Back Pain/Injury Stated Complaint: Lumbar Pain Time Seen by Provider: 04/23/22 21:17 History of Present Illness: Patient is in tonight for right sided leg and hip pain with low back pain. She reports that for couple of weeks she has been having some muscle cramping and aching in her low back and she honestly thought it was from her chemo medication Erivedge. She offers that she has a history of non-Hodgkin's lymphoma and that she is currently being treated for basal cell carcinoma at her radiation site. She reports that she is on pulsed dosing of the Erivedge. She knows that muscle cramping is a side effect of that so she had not become too concerned until yesterday when the pain became severe. She reports that the pain is severe in her right upper inner thigh it does radiate down her leg along her montiel. She reports that she has severe pain in her right side hip. She does have pain in her low back. She denies any saddle anesthesia, loss of bowel or bladder control, fever, chills, nausea, vomiting. She denies any urinary symptoms. She denies any recent injury or acute trauma. Associated symptoms: Deny abdominal pain, chills, dysuria, fever(s), nausea, urinary urgency or vomiting Review of Systems Const: Denies: fever(s), chills or body aches Card: Denies: chest pain or palpitations Resp: Denies: dyspnea GI: Denies: abdominal pain, nausea or vomiting : Denies: flank pain, difficulty voiding, dysuria, urinary frequency, urinary urgency or urinary hesitancy Musc: Reports: back pain and extremity pain [facility] PFSH: Medical History BCC (basal cell carcinoma of skin) Depression Encounter for wellness examination History of non-Hodgkin's lymphoma Hodgkins lymphoma Hyperlipidemia Thyroid nodule Surgical History H/O bladder repair surgery History of hysterectomy History of shoulder surgery Family History Mother Colon cancer, Onset Age: 65 Denies family history of Ovarian cancer Diabetes Clotting disorder Heart disease Hyperlipidemia Breast cancer Anesthesia complication Bleeding disorder Hypertension Uterine cancer Thyroid condition Stroke Social History Smoking and tobacco status: former smoker History of recent travel: No Physical Exam Const: COMMON NORMALS: patient oriented x3 and alert NUTRITIONAL APPEARANCE: obese morbidly obese OTHER: Patient is grimacing and tearful. She appears to be in severe pain Resp: COMMON NORMALS: normal respiratory effort, No use of accessory muscles and clear to auscultation bilaterally AUSCULTATION: clear to auscultation bilaterally Cardio: COMMON NORMALS: regular rate, regular rhythm, S1 normal heart sound present and S2 normal heart sound present RATE: regular rate RHYTHM: regular rhythm HEART SOUNDS: S1 normal heart sound present and S2 normal heart sound present Back/Pelvis: OTHER: No tenderness to palpation over lumbar spine. There is no obvious bony deformity appreciated. There is some tenderness to palpation to the right side lumbar musculature. Extremity: NARRATIVE EXTREMITY EXAM: The patient is exquisitely tender to palpation of the anterior and medial aspect of the right upper thigh. She has significant tenderness to the right lateral hip palpation. There is no obvious bony or soft tissue deformity appreciated. There is no erythema to the thigh or hip. Skin is intact. Pedal pulses intact. Color and sensation are consistent with the left lower extremity. Patient cries when she has to move or change positions. Neuro: COMMON NORMALS: patient oriented x3 SENSORIUM/ORIENTATION: Yes alert Course Vital Signs: Vital signs: Vital Signs Temperature 97.8 F 04/23/22 19:54 Pulse Rate 92 04/23/22 23:06 Respiratory Rate 19 H 04/23/22 23:56 Blood Pressure 157/93 04/23/22 23:06 Pulse Oximetry 96 04/23/22 23:56 Oxygen Delivery Me thod 04/23/22 23:06 MDM - Back Pain/Injury Medical Decision Making This is a 46-year-old female who was in the ER last night for back and hip pain. She has a history of non-Hodgkin's lymphoma and is currently being treated for basal cell carcinoma with Erivedge medication on pulsing doses. 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 The patient reports that when she initially started the medication she did have lots of muscle cramping but it was very different than what she is feeling now. She does not have a history of chronic pain medication usage. The patient had basic labs done last night which were normal. Imaging of the lumbar spine and pelvis was unremarkable. Patient also had a CT of the abdomen and pelvis and she had blood in her urine to rule out renal calculi. Patient was sent home with Valium, prednisone, OxyContin to help with her pain symptoms. Patient reports that she was slightly more comfortable when she left the ER but as soon as she stood up the pain was intense and she had to be helped into her home. She cannot bear weight on the leg. She reports trying to get in the shower today and she actually did fall because her leg gave out on her. Repeated labs adding ESR, CRP, lactic acid level. ESR slightly elevated CRP and lactic are normal. Discussed the case, at length, with Dr. Humphrey. He recommends MRI hip and lumbar spine. Care transferred to Dr. Humphrey. Labs I reviewed the patient's lab results. 04/23/22 23:00 04/23/22 23:00 Laboratory Results WBC 15.7 10^3/uL (4.0-10.0) H 04/23/22 23:00 RBC 4.88 10^6/uL (4.1-5.3) 04/23/22 23:00 Hgb 15.2 g/dL (11.5-15.3) 04/23/22 23:00 Hct 45.6 % (37.0-47.0) 04/23/22 23:00 MCV 93.4 fl (81-99) 04/23/22 23:00 MCH 31.1 pg (28.0-34.0) 04/23/22 23:00 MCHC 33.3 g/dL (30.0-36.0) 04/23/22 23:00 RDW 14.4 % (12.1-15.1) 04/23/22 23:00 Plt Count 309 10^3/cmm (130-400) 04/23/22 23:00 MPV 10.7 fL (7.4-10.4) H 04/23/22 23:00 Neut % (Auto) 82.5 % 04/23/22 23:00 Lymph % (Auto) 9.5 % 04/23/22 23:00 [place] % (Auto) 7.3 % 04/23/22 23:00 Eos % (Auto) 0.0 % 04/23/22 23:00 Baso % (Auto) 0.1 % 04/23/22 23:00 Neut # (Auto) 12.98 10^3/uL (1.8-7.7) H 04/23/22 23:00 Lymph # (Auto) 1.5 10^3/uL (0.8-4.8) 04/23/22 23:00 [place] # (Auto) 1.2 10^3/uL (0.2-0.9) H 04/23/22 23:00 Eos # (Auto) 0.0 10^3/uL (0.0-0.8) 04/23/22 23:00 Baso # (Auto) 0.0 10^3/uL (0.0-0.1) 04/23/22 23:00 Nucleated RBC % (auto) 0 % 04/23/22 23:00 Nucleated RBCs # 0.0 /100WBC 04/23/22 23:00 ESR 18 mm/hr (0-15) H 04/23/22 23:00 Sodium 133 mmol/L (136-145) L 04/23/22 23:00 Potassium 4.2 mmol/L (3.5-5.1) 04/23/22 23:00 Chloride 100 mmol/L (98-107) 04/23/22 23:00 Carbon Dioxide 23 mmol/L (22-29) 04/23/22 23:00 Anion Gap 14.2 (5-19) 04/23/22 23:00 BUN 20 mg/dL (6-20) 04/23/22 23:00 Creatinine 0.9 mg/dL (0.5-0.9) 04/23/22 23:00 GFR Calculation 66.8 mL/min (90-130) L 04/23/22 23:00 Glucose 127 mg/dL (65-115) H 04/23/22 23:00 Calculated Osmolality 280 mOsm/kg (285-295) L 04/23/22 23:00 Lactate 1.2 mmol/L (0.5-2.2) 04/23/22 23:00 Calcium 9.4 mg/dL (8.5-10.5) 04/23/22 23:00 Total Bilirubin 0.2 mg/dL (0.15-1.2) 04/23/22 23:00 AST 16 U/L (0-32) 04/23/22 23:00 ALT 15 U/L (0-33) 04/23/22 23:00 Alkaline Phosphatase 112 U/L (35-105) H 04/23/22 23:00 Creatine Kinase 117 U/L (26-192) 04/23/22 23:00 CK-MB (CK-2) 2.8 ng/mL (0-5.34) 04/23/22 23:00 CK-MB (CK-2) Rel Index % (0.0-10.4) 04/23/22 23:00 C-Reactive Protein 4.2 mg/L (0.0-4.9) 04/23/22 23:00 Total Protein 7.4 g/dL (6.6-8.7) 04/23/22 23:00 Albumin 4.0 g/dL (3.5-5.2) 04/23/22 23:00 Globulin 3.4 g/dL (1.3-4.6) 04/23/22 23:00 Discharge Plan Discharge Condition: Stable Prescriptions: No Action multivitamin [Daily Multi-Vitamin] Tablet 1 tab PO DAILY Zyrtec 10 mg capsule 10 mg PO DAILY PRN (Reason: Allergy Symptoms) bupropion HCl [Wellbutrin XL] 150 mg tablet extended release 24 hr 150 mg PO QAM Qty: 30 11RF alprazolam [Xanax] 0.25 mg tablet 0.25 mg PO BID PRN (Reason: Anxiety) ibuprofen 800 mg tablet See Rx Instructions .ROUTE .COMPLEX Qty: 60 0RF Dose Instruction: TAKE 1 TABLET BY MOUTH THREE TIMES A DAY NEEDED FOR PAIN Rx Instructions: TAKE 1 TABLET BY MOUTH THREE TIMES A DAY NEEDED FOR PAIN Erivedge 150 mg capsule 150 mg PO DIRECTED Qty: 21 4RF Rx Instructions: Take 1 PO x 1 week then off for 2 weeks - repeat escitalopram oxalate [Lexapro] 10 mg tablet 10 mg PO DAILY Qty: 30 11RF acetaminophen 325 mg capsule 325 mg PO Q4H PRN (Reason: fever or pain) Qty: 60 0RF Nexium 20 mg Capsule,Delayed Release(Dr/Ec) 20 mg PO DAILY PRN (Reason: Acid Reflux) Valium 2 mg tablet 2 mg PO TID PRN (Reason: muscle spasm) Qty: 10 0RF oxycodone 5 mg tablet 5 mg PO Q4H PRN (Reason: pain) Qty: 10 0RF prednisone 50 mg tablet 50 mg PO DAILY 5 Days Qty: 5 0RF Referrals: Kedar Rubi MD [Primary Care Provider] - Coding Level of Care Code ED Blood Bank Technician for Chg Fwd Exam Expanded Problem Focused
[2022-04-23 22:58] VITALS: RESP 18; O2SAT 96
[2022-04-23] MEDS: fentaNYL 50 mcg/mL INJ 2mL 25 MCG IVP ×2 (22:58→23:56)
[2022-04-23 23:06] VITALS: BP 157/93; PULSE 92; O2SAT 95
[2022-04-23 23:08] LABS: Basophils % 0.1 %; Hematocrit 45.6 % (37.0-47.0); Hemoglobin 15.2 g/dL (11.5-15.3); Lymphocytes # 1.5 10^3/uL (0.8-4.8); Lymphocytes % 9.5 %; Mean Corpuscular HGB Conc 33.3 g/dL (30.0-36.0); Mean Corpuscular Hemoglobin 31.1 pg (28.0-34.0); Mean Corpuscular Volume 93.4 fl (81-99); Mean Platelet Volume 10.7 fL (7.4-10.4); Monocytes # 1.2 10^3/uL (0.2-0.9); Monocytes % 7.3 %; Neutrophils # 12.98 10^3/uL (1.8-7.7); Neutrophils % 82.5 %; Nucleated Red Blood Cells % 0 %; Platelet Count 309 10^3/cmm (130-400); Red Blood Count 4.88 10^6/uL (4.1-5.3); Red Cell Distribution Width 14.4 % (12.1-15.1); White Blood Count 15.7 10^3/uL (4.0-10.0)
[2022-04-23 23:12] LABS: Erythrocyte Sedimentation Rate 18 mm/hr (0-15)
[2022-04-23 23:25] LABS: Alanine Aminotransferase 15 U/L (0-33); Alkaline Phosphatase 112 U/L (35-105); Anion Gap 14.2 (5-19); Aspartate Amino Transferase 16 U/L (0-32); Blood Urea Nitrogen 20 mg/dL (6-20); C Reactive Protein 4.2 mg/L (0.0-4.9); Calcium 9.4 mg/dL (8.5-10.5); Carbon Dioxide 23 mmol/L (22-29); Chloride 100 mmol/L (98-107); Creatine Phosphokinase 117 U/L (26-192); Globulin 3.4 g/dL (1.3-4.6); Glomerular Filtration Rate 66.8 mL/min (90-130); Glucose 127 mg/dL (65-115); Osmolality Calculated 280 mOsm/kg (285-295); Potassium 4.2 mmol/L (3.5-5.1); Sodium 133 mmol/L (136-145); Total Bilirubin 0.2 mg/dL (0.15-1.2); Total Protein 7.4 g/dL (6.6-8.7)
[2022-04-23 23:56] VITALS: RESP 19; O2SAT 96
[2022-04-24] MEDS: haloperidol inj 5 mg/mL INJ 1 mL IVP (00:04)
--- NOTE | 2022-04-24 00:06 | MR_ITS ---
WS: [id number] MRI LUMBAR SPINE WITH AND WITHOUT CONTRAST. HISTORY: severe hip and low back pain difficulty walking COMPARISON: 03/05/2017 TECHNIQUE: Sagittal and axial multisequence imaging is submitted. Postcontrast imaging MultiHance 20 mL IV. Quality of this examination is compromised by body habitus. Normal lumbar alignment with no compression fractures or marrow edema. Disc spaces and vertebral body heights are well-preserved. Conus terminates normally at L1-2 disc level. No discitis or osteomyelitis. There is a large amount of motion particularly on the postcontrast imag ing. Enhancing lesion measures 9 mm in diameter in the RIGHT L5 pedicle. This is a rounded bone lesio n centered in the RIGHT L5 posterior pedicle towards the facet. On the T1 sequences this is of low si gnal but it does enhance diffusely. There is additional mild enhancement within the LEFT pedicle and lamina and a small amount of inflammation in the facet joints at L4-5. L1-L2: Normal. L2-L3: Mild disc bulging. No stenosis. L3-L4: Mild annular disc bulging with mild ligamentum flavum and facet arthritis. No stenosis. L4-L5: Mild disc bulging. Moderate amount of fluid in the facet joints bilaterally with ligamentum fl avum encroachment towards the central canal. Moderate central with bilateral subarticular recess encr oachment. Moderate RIGHT foraminal stenosis. L5-S1: Mild asymmetric disc bulging and osteophyte disease. Mild central and RIGHT subarticular reces s and foraminal stenosis. There is slight disc contact on the RIGHT S1 nerve root. MR/MR lumbar spine wo/w con [id number] IMPRESSION: 1. Moderate central with bilateral subarticular and RIGHT foraminal stenosis a t L4-5 as described above. 2. Mild central, RIGHT subarticular recess and foraminal stenosis at L5-S1 due to disc and osteophyte disease. 3. Enhancing 9 mm bone lesion in the RIGHT L5 posterior pedicle. Additional no dular areas of enhancement LEFT L5 facet with synovitis at the L4-5 facet joint . Small amount of marrow edema LEFT L5 pedicle. Differential includes facet dion nts cystic changes which enhance because of acute inflammation. Differential al so includes osteoid osteoma, hemangioma, metastatic disease and focal area of c hronic osteomyelitis. Consider additional evaluation by bone scan.
--- NOTE | 2022-04-24 00:06 | MR_ITS ---
WS: [id number] MRI RIGHT HIP with and without CONTRAST. COMPARISON: Radiograph 04/22/2022 Multiplanar, multisequence imaging is performed with and without contrast. MultiHance 20 mL IV. Quality of this examination is compromised by body habitus. There is a normal appearance of the RIGHT hip and acetabulum. No marrow edema or fracture. No significant joint space narrowing. Pelvis is sym metric bilaterally. There is no joint effusion. No increase fluid over the greater trochanter. Soft t issues and muscles are symmetric. Seen only on one image is a very small amount of increased T2 signal in the superior anterior labrum. As this is only seen on one sequence cannot confirm a labral tear but suspicious for labral tear. No enhancing mass is identified. No joint effusion. No free fluid within the pelvis. Urinary bladder is well distended. 1.8 cm T2 bright nodule in the LEFT pelvis appears related to the small bowel may be a small bowel diverticulum. This will be better evaluated on CT with IV and oral contrast. MR/MR hip RT wo/w con [id number] IMPRESSION: 1. No fracture or marrow edema or enhancing mass. 2. Suspicious but cannot confirm a very small anterior superior labral tear. T his is only seen on one image. 3. No joint effusion. No evidence for trochanteric bursitis. 4. Small cystic area measuring 1.8 cm associated with the small bowel in the L EFT abdomen. May be a benign diverticulum. This would be better evaluated by CT with IV and oral contrast.
[2022-04-24 00:09] LABS: CKMB 2.8 ng/mL (0-5.34)
[2022-04-24 00:36] LABS: Lactate (Lactic Acid level) 1.2 mmol/L (0.5-2.2)
[2022-04-24 04:00] VITALS: BP 145/98; PULSE 78; O2SAT 95
[2022-04-24 05:54] VITALS: RESP 17; O2SAT 96
[2022-04-24] MEDS: HYDROmorphone 1 mg/mL INJ 1 mL 0.5 MG IVP (05:54)
--- NOTE | 2022-04-24 07:18 | PC.NURSE ---
report received from postie. pt at MRI
[2022-04-24] MEDS: gadobenate dimeglumine 20 mL vial IV (07:32)
[2022-04-24 08:34] VITALS: BP 131/81; PULSE 88; O2SAT 98
[2022-04-24 10:20] VITALS: PULSE 85; O2SAT 98
--- NOTE | 2022-04-24 10:53 | PC.SOCIAL ---
Addendum entered by Prudence Moreno 05/29/22 13:04: Patient had a follow up appointment scheduled with ortho - patient did attend appointment. Original Note: Ortho Referral Referral sent to ortho for scheduling. Clinic to contact patient with appt date/time.
== END 2022-04-24 10:20 | disposition home or self-care (01) ==
PROVIDERS: Nurse Practitioner Family; Emergency Provider Family Medicine; PCP Family Medicine
DX: M54.50 Low back pain, unspecified (principal); R31.9 Hematuria, unspecified; Z85.72 Personal history of non-Hodgkin lymphomas; Z87.891 Personal history of nicotine dependence
CPT/HCPCS: 72158; 73723; 80053; 82550; 82553; 83605; 85025; 85651; 86140; 96374; 96375; 96376; 99284; A9577; J1170; J1630; J3010

== ENCOUNTER → 2022-04-25 08:15 | Outpatient (BNVA) | payer BC, SELFPAY | PROVIDERS: PCP Family Medicine; Referring Provider Nurse Practitioner Family; Visit Provider Physician Assistant | DX: M43.16 Spondylolisthesis, lumbar region (principal); M47.27 Other spondylosis with radiculopathy, lumbosacral region | CPT/HCPCS: 72110 ==

== ENCOUNTER 2022-04-29 08:31 | Outpatient (CLI) | payer BC, SELFPAY ==
--- NOTE | 2022-04-29 08:30 | US_ITS ---
WS: [id number] THYROID ULTRASOUND HISTORY: thyroid nodules COMPARISON: 03/20/2020 Right lobe: 1.2 cm x 1.5 cm x 3.6 cm (w x ap x l). Volume: 3.1 cm3. Normal size and echotexture. No significant are dominant nodules are present. Left lobe: 1.2 cm x 1.0 cm x 3.2 cm (w x ap x l). Volume: 2.0 cm3. Normal size and echotexture. No significant or dominant nodules are present. The complex cyst in the posterior mid LEFT thyroid described on the prior study is not evident today. Isthmus: 0.4 cm. US/US thyroid [id number] IMPRESSION: Unremarkable thyroid ultrasound. No suspicious masses or nodules. The previousl y described cystic nodule in the mid LEFT thyroid is not identified today.
== END 2022-04-29 08:32 | disposition home or self-care (01) ==
LOC: RAD 08:32
PROVIDERS: PCP Family Medicine; Visit Provider Family Medicine
DX: E04.2 Nontoxic multinodular goiter (principal)
CPT/HCPCS: 76536

== ENCOUNTER 2022-05-10 12:27 | Emergency (ER) | payer BC, SELFPAY ==
[2022-05-10 12:41] VITALS: BP 136/73; PULSE 100; RESP 14; TEMP 36.5; O2SAT 99; BMI 43.9
--- NOTE | 2022-05-10 12:50 | USCV_ITS ---
Mei Chase Age: 46 Gender: F : 1975 Exam Date: 05/10/2022 14:10 Ordering Phys: Jose Hernadez Technologist: SHAHNAZ Exam Location: [facility] [place] Indication: RLE PAIN AND SWELLING X1 DAY HISTORY: Lower extremity swelling. Lower extremity pain. PROCEDURES: Venous duplex imaging was performed in only the right lower extremity. The following venous structures were evaluated: common femoral vein, profunda vein, proximal portion of the greater saphenous vein, superficial femoral vein, and the popliteal vein. In addition, the posterior tibial and peroneal trunk were evaluated. Serial compression, augmentation maneuvers, and spectral Doppler flow evaluation were performed. FINDINGS: No evidence of DVT seen in any vessel visualized at this time. CONCLUSIONS No evidence of right lower extremity DVT. Pipo Bonner MD (Electronically Signed) Final Date: 10 May 2022 15:25 S
--- NOTE | 2022-05-10 14:08 | PC.NURSE ---
called to lobby no answer
--- NOTE | 2022-05-10 14:58 | W.ED.EXTPRO ---
HPI - Extremity Problem General: Chief complaint: Extremity Problem,Nontraumatic Stated complaint: right leg pain, possible blood clot Time Seen by Provider: 05/10/22 12:51 History of Present Illness: Patient is a 46-year-old female comes to the ED with right leg pain and swelling. Symptoms started approximately 2 days ago. Denies any known injury or trauma to cause pain or swelling. Patient called her pain management clinic and told them about her symptoms and they sent her here to be evaluated for DVT. Patient also complaining of having right knee pain as well. She rates the pain a 5 out of 10. Denies any injury or trauma to cause the knee pain. Associated symptoms: Deny chest pain, fever(s) or rash Review of Systems Const: Denies: fever(s), chills or fatigue Eyes: Denies: change in vision or eye discomfort ENMT: Denies: throat pain, odynophagia, nasal discharge or nasal congestion Card: Denies: chest pain, palpitations, edema, swelling of feet/ankles, dyspnea on exertion or orthopnea Resp: Denies: dyspnea, productive cough or non-productive cough GI: Denies: abdominal pain, nausea, vomiting, diarrhea, constipation or hematochezia : Denies: flank pain, dysuria or hematuria Musc: Reports: extremity pain (Right lower leg and right knee) and extremity swelling (Right lower leg); Denies: neck pain or back pain Skin/Breast: Denies: rash or new lesions Neuro: Denies: headache(s), numbness in extremities or weakness in extremities PFS ED PFSH: Medical History BCC (basal cell carcinoma of skin) Depression Encounter for wellness examination History of non-Hodgkin's lymphoma Hodgkins lymphoma Hyperlipidemia Thyroid nodule Surgical History H/O bladder repair surgery History of hysterectomy History of shoulder surgery Family History Mother Colon cancer, Onset Age: 65 Denies family history of Ovarian cancer Diabetes Clotting disorder Heart disease Hyperlipidemia Breast cancer Anesthesia complication Bleeding disorder Hypertension Uterine cancer Thyroid condition Stroke Social History Smoking and tobacco status: former smoker History of recent travel: No Physical Exam Const: COMMON NORMALS: no acute distress, patient oriented x3 and alert GENERAL APPEARANCE: cooperative and comfortable HENMT: COMMON NORMALS: normocephalic HEAD & SCALP: normocephalic MOUTH: Normal oral and palatal mucosa present THROAT: posterior oropharynx normal and uvula midline Neck/C-Spine: COMMON NORMALS: supple GENERAL: Yes normal visual inspection Resp: COMMON NORMALS: normal respiratory effort, No retractions, No use of accessory muscles and clear to auscultation bilaterally AUSCULTATION: clear to auscultation bilaterally Cardio: COMMON NORMALS: regular rate, regular rhythm, S1 normal heart sound present, S2 normal heart sound present, No gallops present (Cardio), No clicks present (Cardio), No murmurs present (Cardio) and Peripheral pulses 2+ throughout RATE: regular rate RHYTHM: regular rhythm HEART SOUNDS: S1 normal heart sound present and S2 normal heart sound present PERIPHERAL PULSES: Peripheral pulses 2+ throughout GI: COMMON NORMALS: Normal to inspection, nondistended, normoactive bowel sounds present, Soft to palpation, non-tender and no masses PALPATION: Yes Soft to palpation : COMMON NORMALS: Yes no CVA tenderness BLADDER/KIDNEY EXAM: Yes no CVA tenderness Back/Pelvis: COMMON NORMALS: no CVA tenderness Extremity: COMMON NORMALS: full ROM GENERAL: Yes normal exam except as noted, Yes calf tenderness (Right calf tenderness) and Yes edema (Nonpitting edema in right lower leg) Neuro: COMMON NORMALS: patient oriented x3 SENSORIUM/ORIENTATION: Yes alert GAIT: Yes Normal gait present Skin: GENERAL SKIN EXAM: dry skin Course Vital Signs: Vital signs: Vital Signs Temperature 97.7 F 05/10/22 12:41 Pulse Rate 92 05/10/22 16:42 Respiratory Rate 16 05/10/22 16:42 Blood Pressure 141/92 05/10/22 16:42 Pulse Oximetry 95 05/10/22 16:42 Oxygen Delivery Me thod 05/10/22 12:41 MDM - Extremity (Nontraumatic) Medical Decision Making Patient is a 46-year-old female comes to the ED with right leg pain and swelling. Symptoms started approximately 2 days ago. Denies any known injury or trauma to cause pain or swelling. Patient called her pain management clinic and told them about her symptoms and they sent her here to be evaluated for DVT. Patient also complaining of having right knee pain as well. She rates the pain a 5 out of 10. Denies any injury or trauma to cause the knee pain. Vitals are stable. Patient has some right calf tenderness and some mild right lower leg nonpitting edema. Ultrasound venous duplex of right lower extremity shows no DVT or blood clot. Knee x-ray showed no acute abnormality but did note some joint effusion and equivocal loose body. Patient was diagnosed with right knee joint effusion and discharged home with crutches. I placed an order with case management for patient to be referred to Ortho for follow-up on knee pain. Patient understood and agreed with plan. Lab Data Radiology Impressions Knee X-Ray 05/10/22 15:22 IMPRESSION: No acute abnormality identified. Joint effusion and equivocal loose body. Discharge Plan Discharge Patient Disposition: Home Clinical Impression: Effusion of right knee joint Condition: Stable Prescriptions: No Action multivitamin [Daily Multi-Vitamin] Tablet 1 tab PO QAM bupropion HCl [Wellbutrin XL] 150 mg tablet extended release 24 hr 150 mg PO QAM Qty: 30 11RF prednisone 20 mg tablet 20 mg PO DAILY Qty: 15 0RF Rx Instructions: 60mg x 3 days 40mg x 2 days 20mg x 2 days alprazolam [Xanax] 0.25 mg tablet 0.25 mg PO BID PRN (Reason: Anxiety) hydrocodone-acetaminophen 5-325 mg tablet 1 tab PO TID PRN (Reason: pain) 7 Days Qty: 21 0RF Erivedge 150 mg capsule 150 mg PO DIRECTED Qty: 21 4RF Rx Instructions: Take 1 PO DAILY FOR 1 week then off for 2 weeks - repeat diazepam [Valium] 2 mg tablet 5 mg PO TID PRN (Reason: muscle spasm) Qty: 30 0RF acetaminophen 325 mg capsule 325 mg PO Q4H PRN (Reason: fever or pain) Qty: 60 0RF esomeprazole magnesium [Nexium] 20 mg Capsule,Delayed Release(Dr/Ec) 20 mg PO DAILY PRN (Reason: Acid Reflux) oxycodone 5 mg tablet 5 mg PO Q4H PRN (Reason: pain) Qty: 10 0RF Zyrtec 10 mg Tablet 10 mg PO DAILY PRN (Reason: Allergy Symptoms) ibuprofen 800 mg tablet 800 mg PO TID PRN (Reason: Pain) Lexapro 10 mg tablet 10 mg PO QAM Discharge Orders: Discharge ED (Routine); Ordered 05/10/22 Ordered By: Jose Hernadez Referrals: Kedar Rubi MD [Primary Care Provider] - Discharge Diet: Regular Discharge Activity: Increase activity as tolerated Patient Instructions: Knee Pain (ED) Activity Restrictions/Additional Instructions: Follow-up with medical provider as directed.. Case management should be counting in the next several days to set up an appointment with Ortho for follow-up on knee pain. Continue taking all home medications as previously prescribed. Return to the ER or your medical provider if condition worsens. Please read and understand discharge instructions. Thank you for choosing [facility] for your healthcare needs today. Please realize this is an emergency room and that we are providing you with a medical screening exam and this may not be complete and all inclusive of all the testing and or work up that you may need to determine your ailment or severity of your illness. It is very important that you follow up as instructed or that you return to the Emergency Department should you have concerns or if your condition changes or worsens in any way. Coding Level of Care Code ED [employer] for Chaz Fwd Exam Comprehensive
--- NOTE | 2022-05-10 15:22 | XR_ITS ---
WS: [id number] XR knee RT 3V* [id number] REASON FOR EXAM: right knee pain FINDINGS: Joint effusion. The joint spaces of the knee are intact and relatively well-preserved. No fracture. Ossified fibrous cortical defect in the proximal lateral tibia, not significant. Small thin sclerotic rimmed lucency in the tibial eminence of the tibia, not significant. There is a very faint density seen on the lateral view of the knee which cannot be readily identified on the other views. Potentially this is a loose body. XR/XR knee RT 3V* [id number] IMPRESSION: No acute abnormality identified. Joint effusion and equivocal loose body.
[2022-05-10] MEDS: HYDROcodone-acetaminophen 7.5-325 mg Tablet 1 TAB PO (16:09)
[2022-05-10 16:42] VITALS: BP 141/92; PULSE 92; RESP 16; O2SAT 95
--- NOTE | 2022-05-13 10:21 | DCPLANNER ---
Addendum entered by Prudence Moreno 05/16/22 13:40: Patient had a follow up appointment for patient with ortho scheduled for 05.15.22 - patient did attend appointment. Original Note: surgical manager had message to schedule a follow up appointment for patient with ortho. surgical manager sent patients information to the front office staff at ortho. Patients information will be printed and reviewed. Clinic will call patient with appointment information.
== END 2022-05-10 16:43 | disposition home or self-care (01) ==
PROVIDERS: Emergency Provider Physician Assistant; PCP Family Medicine
DX: M25.461 Effusion, right knee (principal); Z87.891 Personal history of nicotine dependence; Z85.71 Personal history of Hodgkin lymphoma; E78.5 Hyperlipidemia, unspecified
CPT/HCPCS: 73562; 93971; 99284; E0114

== ENCOUNTER 2022-05-20 07:37 | Outpatient (CLI) | payer BC, SELFPAY ==
--- NOTE | 2022-05-20 07:43 | NM_ITS ---
WS: [id number] NUCLEAR MEDICINE WHOLE BODY BONE SCAN HISTORY: Z85.72 - Personal history of non-Hodgkin lymphomas COMPARISON: MRI 04/24/2022 TECHNIQUE: The patient was injected with 24.9 mCi of Technetium 99m HDP and serial whole-body scintig rey have been performed with anterior and posterior images. There is no uptake within the RIGHT L5 posterior elements. Minimal uptake within the LEFT facet joint . The remaining skeletal demonstrates degenerative changes at the AC joints, knees and ankles from ar thritis. Small amount of increased uptake within the mid cervical spine is probably degenerative also . Normal soft tissue uptake. Normal uptake within the kidneys. NM/NM bone scan whole body* [id number] IMPRESSION: 1. Bone scan is normal involving the RIGHT L5 posterior elements. Suggest this is a benign finding noted on the recent MRI. 2. No evidence for metastatic disease to the bony skeleton.
== END 2022-05-20 07:38 | disposition home or self-care (01) ==
LOC: RAD 07:38
PROVIDERS: PCP Family Medicine; Visit Provider Anesthesiology Pain Medicine
DX: Z85.72 Personal history of non-Hodgkin lymphomas (principal)
CPT/HCPCS: 78306; A9561

== ENCOUNTER 2022-06-14 10:47 | Outpatient (CLI) | payer BC, SELFPAY ==
[2022-06-14 11:39] LABS: Alanine Aminotransferase 10 U/L (0-33); Alkaline Phosphatase 83 U/L (35-105); Anion Gap 14.2 (5-19); Aspartate Amino Transferase 13 U/L (0-32); Blood Urea Nitrogen 14 mg/dL (6-20); C Reactive Protein 5.8 mg/L (0.0-4.9); Calcium 8.8 mg/dL (8.5-10.5); Carbon Dioxide 24 mmol/L (22-29); Chloride 101 mmol/L (98-107); Globulin 3.5 g/dL (1.3-4.6); Glomerular Filtration Rate 76.6 mL/min (90-130); Glucose 111 mg/dL (65-115); Osmolality Calculated 281 mOsm/kg (285-295); Potassium 4.2 mmol/L (3.5-5.1); Sodium 135 mmol/L (136-145); Total Bilirubin 0.3 mg/dL (0.15-1.2); Total Protein 7.5 g/dL (6.6-8.7)
[2022-06-17 13:15] LABS: Cyclic Citrullinated Peptide <16 UNITS
[2022-06-17 14:24] LABS: Anti-Double Strand DNA AB 1 IU/mL; Jo-1 Antibody <1.0 NEG AI (<1.0 NEG); SM/RNP Antibodies <1.0 NEG AI (<1.0 NEG); SS-B/LA IGG <1.0 NEG AI (<1.0 NEG); Scleroderma Ab(Scl-70) Ab <1.0 NEG AI (<1.0 NEG); Ss-A/Ro Igg <1.0 NEG AI (<1.0 NEG)
[2022-06-25 14:22] LABS: Erythrocyte Sedimentation Rate 19 mm/hr (0-15)
== END 2022-06-14 10:48 | disposition home or self-care (01) ==
LOC: LAB 10:54
PROVIDERS: PCP Family Medicine; Visit Provider Orthopaedic Surgery
DX: M25.551 Pain in right hip (principal); Z79.899 Other long term (current) drug therapy
CPT/HCPCS: 36415; 80053; 85651; 86140; 86200; 86225; 86235

== ENCOUNTER 2022-06-21 06:00 | Outpatient (RCR) | payer BC, SELFPAY | END 2022-07-09 23:59 | disposition home or self-care (01) | LOC: SPT 06:00 | PROVIDERS: PCP Family Medicine; Visit Provider Physician Assistant | DX: M54.50 Low back pain, unspecified (principal); M25.551 Pain in right hip | CPT/HCPCS: 97113; 97162 ==

== ENCOUNTER → 2022-07-04 08:23 | Outpatient (BNVA) | payer BC, SELFPAY | PROVIDERS: PCP Family Medicine; Visit Provider Family Medicine | DX: D72.829 Elevated white blood cell count, unspecified (principal); M25.551 Pain in right hip; M54.16 Radiculopathy, lumbar region; F32.A Depression, unspecified | CPT/HCPCS: 80048; 85025 ==

== ENCOUNTER 2022-07-10 06:00 | Outpatient (RCR) | payer BC, SELFPAY | END 2022-08-06 23:59 | disposition home or self-care (01) | LOC: SPT 06:00 | PROVIDERS: PCP Family Medicine; Visit Provider Physician Assistant | DX: M54.50 Low back pain, unspecified (principal); M25.551 Pain in right hip | CPT/HCPCS: 97113; 97530 ==

== ENCOUNTER 2022-08-21 14:09 | Observation (INO) | payer BC, SELFPAY ==
[2022-08-14 11:13] VITALS: BMI 42.7
--- NOTE | 2022-08-14 11:36 | P.ANESASSM_ITS ---
Pre-Anesthetic Assessment Height/Weight: Height 1.57 m Weight 106.141 kg Preop Diagnosis: Cystocele stage II, stress urinary incontinence Operation Date: 08/21/22 07:00 Proposed Procedures p Spinal Fusion:Q2Bfiivy infusion with cage at L5/S1 and Decomp,59368,03529,72287,84513,55414,27597,M54.16,M43.16,M47.816(Not Applicable) - DO dionicio Johnson Lumbar Spine Decompression(Not Applicable) - Alli Tobias DO Familial anesthetic complications: None Was Beta Maricruz taken within 24 hours: N/A Was Clonidine taken within 24 hours: N/A Social No alcohol Exam alert, oriented x 3, clear to auscultation bilaterally and regular rate & rhythm Airway Mallampati: Class II Dentition: other (missing) GI Gastroesophageal Reflux Disease Metabolic Hyperlipidemia Neuropsych Depression Anesthetic Plan ASA status: 2 Anesthesia: General Risk of > 500 ml blood loss (7ml/kg in children): Yes, adequate IV access and fluids planned Medications/Allergies Home Medications Medication Instructions Recorded Confirmed Last Taken Type multivitamin (Daily Multi-Vitamin 1 tab PO QAM 03/30/20 08/14/22 08/14/22 Hi story tablet) acetaminophen 325 mg capsule 325 mg PO Q4H PRN fever or pain 10/12/21 08/14/22 Unknown Rx #60 caps alprazolam 0.25 mg tablet (Xanax) 0.25 mg PO BID PRN Anxiety 01/12/22 08/14/22 07/10/22 History vismodegib 150 mg capsule 150 mg PO DIRECTED #21 caps 02/06/22 08/14/22 08/02/22 Rx (Erivedge) bupropion HCl 150 mg 24 hr tablet, 150 mg PO QAM #30 tabs 03/07/22 08/14/22 08/14/22 07:00 Rx extended release (Wellbutrin XL) esomeprazole magnesium 20 mg 20 mg PO DAILY PRN Acid Reflux 04/22/22 08/14/22 08/12/22 History capsule,delayed release (Nexium) cetirizine 10 mg tablet (Zyrtec) 10 mg PO DAILY PRN Allergy Symptoms 04/24/22 08/14/22 Unknown History escitalopram oxalate 10 mg tablet 10 mg PO QAM 04/24/22 08/14/22 08/14/22 History (Lexapro) diazepam 2 mg tablet (Valium) 5 mg PO TID PRN muscle spasm #30 04/30/22 08/14/22 06/26/22 Rx tabs hydrocodone 5 mg-acetaminophen 325 1 tab PO BID PRN pain 30 days #60 05/15/22 08/14/22 08/11/22 Rx mg tablet tabs mecobalamin (vitamin B12) 1,000 1,000 mcg sublingual DAILY 06/17/22 08/14/22 08/14/22 History mcg disintegrating tablet,sublingual ibuprofen 800 mg tablet 800 mg PO TID PRN Pain 30 days #90 07/25/22 08/14/22 08/14/22 Rx tabs Bone Growth Stimulator E0748 #1 ea 08/05/22 Unknown Rx Intraoperative Neuromonitoring #1 ea 08/05/22 Unknown Rx Allergies Allergy/AdvReac Type Severity Reaction Status Date / Time azithromycin [From Zithromax] Allergy rash Verified 07/25/22 08:49 [facility] Anesthesia Medical History BCC (basal cell carcinoma of skin) Depression Encounter for wellness examination History of non-Hodgkin's lymphoma Hodgkins lymphoma Hyperlipidemia Thyroid nodule Surgical History H/O bladder repair surgery History of hysterectomy History of shoulder surgery Family History Mother Colon cancer, Onset Age: 65 Denies family history of Ovarian cancer Diabetes Clotting disorder Heart disease Hyperlipidemia Breast cancer Anesthesia complication Bleeding disorder Hypertension Uterine cancer Thyroid condition Stroke Social History Smoking and tobacco status: former smoker Second hand smoke exposure: No Alcohol intake: current Alcohol intake frequency: few times a week Alcohol type: hard liquor Data Anesthesia Cardiac Studies: No Data to Display
[2022-08-21] VITALS (26 sets, daily range): BP systolic 74–138; BP diastolic 44–82; PULSE 82–100; RESP 11–97; TEMP 36.1–37; O2SAT 92–100; BMI 42.7
--- NOTE | 2022-08-21 | XR_ITS ---
WS: [id number] INTRAOPERATIVE TECHNIQUE: 3-D cine fluoroscopy obtained for intraoperative purposes. FLUOROSCOPY TIME: 00:22 minutes DLP: 3321 cgy/cm2 CLINICAL INFORMATION: OR PICS FINDINGS: Intraoperative changes pedicle screw fixation L4-S1 with dorsal interconnecting rods and interbody fu gerardo grafts. Hardware appears in good position. XR/XR lumbar spine 1V [id number] IMPRESSION: Images obtained for intraoperative purposes.
--- NOTE | 2022-08-21 07:40 | P.ANESUD_ITS ---
Pre-Anesthetic Update Pre-Anesthetic Assessment: Date of Surgery/Procedure: 08/21/22 Preop Sindy gnosis: Spondylolisthesis L4-5, lumbar radiculopathy Proposed Procedure: Operation Date: 08/21/22 08:45 Proposed Procedures p Spinal Fusion:V5Aorsyv infusion with cage at L5/S1 and Decomp,20943,[id number],59325,06217,86733,M54.16,M43.16,M47.816(Not Applicable) - Alli Tobias, DO s Lumbar Spine Decompression(Not Applicable) - Alli Tobias, DO Any changes to Pre-Anesthetic Assessment?: No Last Intake: Intake Last Liquid Date 08/20/22 Last Liquid Time 22:00 Last Solid Date 08/20/22 Last Solid Time 17:30 Vitals: Temperature 97 F L 08/21/22 07:21 Temperature Source Temporal Artery S can 08/21/22 07:21 Pulse Rate 91 08/21/22 07:21 Respiratory Rate 97 H 08/21/22 07:21 Blood Pressure 138/82 08/21/22 07:21 Blood Pressure Sisi n 100 08/21/22 07:21 Pulse Oximetry 96 08/21/22 07:21 Oxygen Delivery Me thod 08/21/22 07:21 Exam: Pre-Anes Outpt Exam: alert, oriented x 3, clear to auscultation bilaterally and regular rate & rhythm Cardiac Studies: No Data to Display
[2022-08-21] MEDS: sodium chloride 0.9% 1,000 ML 30 ML IV (07:51)
--- NOTE | 2022-08-21 09:01 | W.PM.OPSUD ---
Surgery/Procedure H&P Update DATE OF PROCEDURE: August 21, 2022 DATE H&P PERFORMED: 07/25/22 H&P UPDATE INFORMATION: I have reviewed H&P completed within last 30 days, I have examined patient prior to procedure and No changes to prior documentation PREOP DIAGNOSIS: Spondylolisthesis L4-5, lumbar radiculopathy PLANNED PROCEDURE: Operation Date: 08/21/22 08:45 Proposed Procedures p Spinal Fusion:H6Jgagpz infusion with cage at L5/S1 and Decomp,09088,12003,61698,88764,12407,45075,M54.16,M43.16,M47.816(Not Applicable) - DO dionicio Johnson Lumbar Spine Decompression(Not Applicable) - Alli Tobias DO
[2022-08-21] MEDS: ceFAZolin 2,000 MG in sodium chloride 0.9% (plus) 50 ML 100 MG IV ×2 (09:15→16:59)
[2022-08-21] MEDS: vancomycin 1,000 MG SDV 1000 MG IRRIGATION (09:55)
[2022-08-21] MEDS: heparin, porcine 1,000 unit/mL INJ 10 mL 10000 UNIT XX (09:55)
[2022-08-21] MEDS: lidocaine-epi 1% 20 mL INJ INJECTION (09:55)
[2022-08-21 12:24] LABS: Basophils # 0.1 10^3/uL (0.0-0.1); Basophils % 1.1 %; Eosinophils # 0.2 10^3/uL (0.0-0.8); Eosinophils % 1.9 %; Hematocrit 43.5 % (37.0-47.0); Hemoglobin 13.8 g/dL (11.5-15.3); Lymphocytes # 1.6 10^3/uL (0.8-4.8); Lymphocytes % 19.9 %; Mean Corpuscular HGB Conc 31.7 g/dL (30.0-36.0); Mean Corpuscular Hemoglobin 30.3 pg (28.0-34.0); Mean Corpuscular Volume 95.4 fl (81-99); Mean Platelet Volume 11.7 fL (7.4-10.4); Monocytes # 0.8 10^3/uL (0.2-0.9); Monocytes % 9.4 %; Neutrophils # 5.39 10^3/uL (1.8-7.7); Neutrophils % 67.2 %; Nucleated Red Blood Cells % 0 %; Platelet Count 297 10^3/cmm (130-400); Red Blood Count 4.56 10^6/uL (4.1-5.3); Red Cell Distribution Width 14.1 % (12.1-15.1)
[2022-08-21 13:39] LABS: Basophils # 0.1 10^3/uL (0.0-0.1); Basophils % 0.4 %; Eosinophils % 0.2 %; Hematocrit 32.9 % (37.0-47.0); Hemoglobin 10.3 g/dL (11.5-15.3); Lymphocytes # 1.7 10^3/uL (0.8-4.8); Lymphocytes % 9.8 %; Mean Corpuscular HGB Conc 31.3 g/dL (30.0-36.0); Mean Corpuscular Volume 99.1 fl (81-99); Mean Platelet Volume 11.1 fL (7.4-10.4); Monocytes # 0.5 10^3/uL (0.2-0.9); Monocytes % 2.6 %; Neutrophils # 15.11 10^3/uL (1.8-7.7); Neutrophils % 85.5 %; Nucleated Red Blood Cells % 0 %; Platelet Count 275 10^3/cmm (130-400); Red Blood Count 3.32 10^6/uL (4.1-5.3); Red Cell Distribution Width 14.1 % (12.1-15.1); White Blood Count 17.7 10^3/uL (4.0-10.0)
--- NOTE | 2022-08-21 14:08 | XR_ITS ---
WS: [id number] XR lumbar spine 2-3V* [id number] REASON FOR EXAM: PA/LAT Post op fusion FINDINGS: Posterior decompression with posterior pedicle screws and interconnecting rods L4-S1. Interbody fusio n devices at L4-L5 and L5-S1. Surgical appliances are in proper position and alignment. XR/XR lumbar spine 2-3V* [id number] IMPRESSION: Postoperative spine without abnormality.
[2022-08-21] MEDS: HYDROmorphone 1 mg/mL INJ 1 mL 0.5 MG IVP (14:35)
[2022-08-21] MEDS: midazolam 1 mg/mL INJ 2 mL 2 MG IVP (14:36)
--- NOTE | 2022-08-21 14:40 | PM.OP ---
Operative Report Date of procedure: August 21, 2022 Pre-op diagnosis: Preop Diagnosis Spondylolisthesis L4-5, lumbar radiculopathy Post-op diagnosis: same Procedure done: 1. L5/S1 interbody fusion with posterolateral fusion 2. L4/5 Interbody fusion with posterolateral fusion 3. Instrumentation L4-S1 4. Cage at L4/5 5. Cage L5/S1 6. Laminectomy L4/5 laminectomy with facetectomy 7. Laminectomy L5/S1 with partial facetectomy 8. use of computer navigation / Stereotactic for spine 9. Bone marrow aspirate from right iliac crest 10. use of autograft from same incision 11. allograft 12. bone biopsy right L5 pedicle Surgeon: Alli Tobias Estimated blood loss (mL): 1,350 Procedure: 1. L5/S1 interbody fusion with posterolateral fusion 2. L4/5 Interbody fusion with posterolateral fusion 3. Instrumentation L4-S1 4. Cage at L4/5 5. Cage L5/S1 6. Laminectomy L4/5 laminectomy with facetectomy 7. Laminectomy L5/S1 with partial facetectomy 8. use of computer navigation / Stereotactic for spine 9. Bone marrow aspirate from right iliac crest 10. use of autograft from same incision 11. allograft 12. bone biopsy right L5 pedicle Patient is brought to the operative suite. After undergoing anesthesia, the patient had neuro monitoring attached. Patient was then placed in the prone position on the Azeem table. All areas of impingement were well-padded. Patient was then prepped and draped in the normal sterile fashion. Skin incision was then made over the L4-S1 level. Subperiosteal dissection was made out to the transverse processes of L4 and L5 and S1 bilaterally. The [employer] bone marrow aspirate kit was used to aspirate bone marrow aspirate from the right iliac crest through a separate incision through the fascia.. This was done by using the sharp probe to open up the bone. Aspiration was performed and then the blunt probe was then used to dissect down to through the bone tunnel. An aspirating well drawn back a millimeter approximately 20 cc of bone marrow aspirate was used. Admixed with the allograft and autograft bone that will be used. Was brought to placing pins into the left iliac crest. 2 pins were placed in the iliac crest. These were later removed within the case. The fiducial was then attached. The C-arm was then brought in and spun around the patient. Information from the C-arm was then loaded and the patient and used for placing the navigated computer navigated pedicle screws. The technique for placing the pedicle screws was to use a drill followed by the gearshift probe linked to computer navigation. Followed by the ball probe to feel the superior inferior medial lateral jefferson of the pedicles. Then placement of the screws using computer navigation. Was done at each pedicle. Screws were placed at L4 bilaterally and L5 bilaterally and S1 bilaterally. Next attention was brought to performing the laminectomy ofL4. This was done using the high-speed bur Kerrisons and curettes. Once the lamina was removed and then attention was brought to performing a partial facetectomy on the contralateral side. This was done again using the high-speed bur curettes and Kerrisons. The ligamentum flavum was taken down bilaterally from L4 to L5. Attention was then brought to the facet on the ipsilateral side. The facet was taken down. The L5 nerve was decompressed as it passed around the L5 pedicle. The laminectomy was done for purposes of decompressing the nerve as well as placement of the cage. The L4 nerve was identified as it traversed through the L4/5 foramen. The thecal sac was identified and retracted. The L4/5 disc base was identified. Using a knife the disc base was opened. And then sequential vaishali were placed. The first shaver was a 6 and the last shaver was a 12. Using a pituitary and down going curette the endplates were scraped and disc material was removed from the space. Once adequate decompression of the disc base was felt to be had. Osteoamp sponge was packed into the anterior aspect of the disc base. Then a size 12 cage from [employer] was placed after packing osteoamp into the cage. While placing the cage the thecal sac and L5 nerve was protected. C arm was used to ensure that the cages placed in the appropriate position. Next attention was brought to performing the laminectomy ofL5. This was done using the high-speed bur Kerrisons and curettes. Once the lamina was removed and then attention was brought to performing a partial facetectomy on the contralateral side. This was done again using the high-speed bur curettes and Kerrisons. The ligamentum flavum was taken down bilaterally from L5 to S1. Attention was then brought to the facet on the ipsilateral side. The facet was taken down. The S1 nerve was decompressed as it passed around the S1 pedicle. The laminectomy was done for purposes of decompressing the nerve as well as placement of the cage. The L5 nerve was identified as it traversed through the L5/S1 foramen. The thecal sac was identified and retracted. The L5/S1 disc base was identified. Using a knife the disc base was opened. And then sequential vaishali were placed. The first shaver was a 6 and the last shaver was a 12. Using a pituitary and down going curette the endplates were scraped and disc material was removed from the space. Once adequate decompression of the disc base was felt to be had. Osteoamp sponge was packed into the anterior aspect of the disc base. Then a size 12 cage from [facility] [employer] was placed after packing osteoamp into the cage. While placing the cage the thecal sac and S1 nerve was protected. C arm was used to ensure that the cages placed in the appropriate position. Patient did he had a small dural tear when decompressing around the S1 nerve root. At this point a stitch was placed and Valsalva maneuver was done and there was no evidence of any dural leak at this time. Attention was then brought to attaching the rods to the screws placed in the L4 bilaterally, L5 bilaterally and S1 bilaterally. Caps were torqued into position. Locking the construct in place. Wound was copiously irrigated and then attention was brought to decorticating the facets and transverse processes laterally. Bone that was taken down from the lamina was used along with osteoamp fibers and sponges were packed into the lateral gutters along the facet joints. This was done bilaterally. Wound was then closed in a layered fashion starting with the thoracolumbar fascia. 0-vicryl was used the sub cutaneous tissue was closed with 2-0 vicryl and skin with 4-0 monocryl. Glue was then used to seal the skin and a steril dressing was applied. Patient was then placed in the supine position. The endotracheal tube was removed and patient was transferred to the PACU in stable condition.
--- NOTE | 2022-08-21 15:46 | PC.PT ---
PT treatment on hold today, due to dural tear, will follow.
--- NOTE | 2022-08-21 15:49 | ANE.PACU2 ---
Inpatient post-anesthesia follow up: Airway intact: Yes Vital signs: Temperature 97.0 F Pulse Rate 86 Respiratory Rate 11 Blood Pressure 96/61 Pulse Oximetry 92 Oxygen Delivery Me thod Room Air Oxygen Flow Rate 6 Fraction of Inspir ed Oxygen Hydration adequate: No Nausea and vomiting: No Pain level: 5 Mental status: Baseline Additional Comments: Quite a bit of blood loss in case, BP a touch soft, OK pain control.
[2022-08-21] MEDS: morphine 4 mg/mL SDV 1 mL 2 MG IVP ×3 (15:56→22:51)
[2022-08-21] MEDS: ketorolac 30 mg/mL INJ IVP (15:56)
[2022-08-21] MEDS: lactated ringers 1,000 ML 90 ML IV (15:57)
[2022-08-21] MEDS: HYDROcodone-acetaminophen 10-325 mg Tablet PO (18:43)
[2022-08-21] MEDS: docusate sodium 100 mg Capsule PO (18:44)
[2022-08-21] MEDS: artificial tears Op Soln 15 mL Btl 1 DROP EYE-BOTH (19:22)
[2022-08-21] MEDS: sodium chloride 0.9% 100 mL Bag 50 ML IV (21:03)
[2022-08-22] VITALS (17 sets, daily range): BP systolic 97–122; BP diastolic 61–77; PULSE 91–107; RESP 13–21; TEMP 36.6–37; O2SAT 94–98
[2022-08-22] MEDS: morphine 4 mg/mL SDV 1 mL 2 MG IVP ×5 (00:46→10:28)
[2022-08-22] MEDS: sodium chloride 0.9% 100 mL Bag 50 ML IV (01:19)
[2022-08-22] MEDS: HYDROcodone-acetaminophen 10-325 mg Tablet PO ×5 (02:49→21:30)
[2022-08-22] MEDS: ketorolac 30 mg/mL INJ IVP ×2 (02:49→15:36)
[2022-08-22] MEDS: ceFAZolin 2,000 MG in sodium chloride 0.9% (plus) 50 ML 100 MG IV ×2 (02:50→08:46)
[2022-08-22] MEDS: lactated ringers 1,000 ML 90 ML IV ×2 (02:51→12:50)
[2022-08-22] MEDS: escitalopram 10 mg Tablet PO (05:09)
[2022-08-22] MEDS: buPROPion XL (24 HR) 150 mg Tablet PO (05:09)
[2022-08-22 06:30] LABS: Hematocrit 33.5 % (37.0-47.0); Hemoglobin 10.8 g/dL (11.5-15.3)
--- NOTE | 2022-08-22 07:23 | PM.PN ---
Subjective Subjective: POD 1 Patient resting comfortably. Family is present. Reports back pain weakness in both legs. Denies headaches, shortness of breath or chest pain. Vitals/I&O/Wt Last Vital Signs Temp 98.3 F 08/22/22 04:14 Pulse 91 08/22/22 04:14 Resp 17 08/22/22 07:16 BP 115/72 08/22/22 04:14 Pulse Ox 96 08/22/22 04:14 O2 Del Method 08/22/22 04:14 O2 Flow Rate 6 08/21/22 20:00 08/21/22 08/22/22 08/22/22 22:59 06:59 14:59 Intake Total 170 / 4220 1731 / 5951 Output Total 655 / 2555 700 / 3255 Balance -485 / 1665 1031 / 2696 Weight last 48 hrs Weight 234 lb Physical Exam Narrative: Patient presents alert and oriented x3 with a good general appearance normal mood and affect. Normal coordination normal stability. Mild tenderness around the incisional site with the incision appear to be clean and dry with Hemovac drains intact. No signs of erythema or drainage. No signs of infection. Patient denies any fevers or chills. 4/5 motor strength both lower extremities with negative straight leg raise bilaterally. Calves are supple no medial thigh tenderness. Pulses are 2+ at the dorsalis pedis and posterior tibial region. Good capillary refill throughout normal sensation light touch both lower extremities. Urinary Catheter Management: Miranda: Cath Placed During This Visit: yes Reason for Continuing Indwelling Catheter: Required Immobilization for Trauma or Surgery or Anesthesia Urinary Catheter Date of Insertion: 08/21/22 Urinary Catheter Time of Insertion: 09:30 Data 08/22/22 06:19 A&P Assessment and plan (1) Status post lumbar spinal fusion: Begin raising the head of the bed up to 30 degrees to check for progression of no headaches. Physical therapy to work with her watch she is sitting up at the bedside. Can discontinue both Hemovac drains. We will hold the Miranda catheter until physical therapy has evaluated her and she is mobilizing. We will check her progress through the day as to whether or not she is discharged home today or tomorrow. (2) Incidental durotomy: Attestations Medical Necessity Statement*: Hopeful discharge home later today or tomorrow Coding Level of Care Code Acute Code for Chg Fwd Diagnoses Status post lumbar spinal fusion Z98.1 Incidental durotomy G97.41
[2022-08-22] MEDS: cyanocobalamin 1,000 mcg Tablet 1000 MCG PO (08:45)
[2022-08-22] MEDS: docusate sodium 100 mg Capsule PO ×2 (08:46→18:12)
--- NOTE | 2022-08-22 10:40 | PC.CHAP ---
Pastoral Care Encounter/Spiritual Assessment Type of Contact [] Declined automation clerk visit [] Patient/Family/Request visit [] Outpatient visit [] Follow-up visit [] Physician referral [] Code/Alert [x] Routine visit [] Staff referral [] Actively dying [] Patient sleeping [] Family support [] [] Out of room [] Palliative care [] [x] Receiving care in room [] Pre-surgical visit [] Trauma [] Long length of stay [] ICU visit [] Other: Relational/Emotional Strength [x] Patient feels connected with others/family/visitors/staff [] Distress [] Loneliness/isolation [] Abandonment Spirituality of Patient [x] Person of Latoya [] Attends Sikh of their Latoya [x] Believes in Prayer [] Reads Bible or Mandaen materials [] There are Spiritual issues to be addressed Deputy Administrator Interventions [x] Prayer [x] Active listening [x] Non-anxious presence [x] Spiritual/emotional support [] Crisis/trauma care [x] Spiritual counseling [] Bereavement support [] Provided bereavement packet [] Provided Bible/devotional materials [] Provided toy/stuffed animal, coloring book to patient or family member [] Provided Communion [] Anointing/[place] [] Salvation [x] Completed spiritual assessment [] Other: Impact on Illness or Injury [] Angry [] Fearful [] Anxious [] Often cries [] Exhaustion [] Unable to work [] Unable to attend religious [] Unable to walk/stand [] Unable to read [] Unable to drive [] Unable to eat/drink [] Unable to sleep [] Unable to be with family [] Patient intubated [] Other: Summary had back surgery has some pain has a good attitude well go home + 1 family Time spent with patient 10 mins
--- NOTE | 2022-08-22 11:30 | PC.NURSE ---
hemovac drains Both drains pulled. Pt tolerated well.
[2022-08-22 13:19] LABS: Leukemia Profile (BBPL) See Report; Lymphoma Profile (BBPL) See Report
[2022-08-23] VITALS: BP 116/72; PULSE 105; RESP 16; TEMP 37.1; O2SAT 95
[2022-08-23] MEDS: HYDROcodone-acetaminophen 10-325 mg Tablet PO ×3 (02:00→10:57)
[2022-08-23] MEDS: buPROPion XL (24 HR) 150 mg Tablet PO (05:24)
[2022-08-23] MEDS: escitalopram 10 mg Tablet PO (05:24)
--- NOTE | 2022-08-23 06:18 | PM.PN ---
Subjective Subjective: POD 2 Patient resting comfortably. Reports back pain but leg pain has improved. Does report intermittent headaches that come and go when she lays down they resolve. She denies any shortness of breath or chest pain. Vitals/I&O/Wt Last Vital Signs Temp 98.8 F 08/23/22 00:00 Pulse 105 H 08/23/22 00:00 Resp 16 08/23/22 00:00 BP 116/72 08/23/22 00:00 Pulse Ox 95 08/23/22 00:00 O2 Del Method 08/23/22 00:00 O2 Flow Rate 6 08/21/22 20:00 08/22/22 08/22/22 08/23/22 14:59 22:59 06:59 Intake Total 1068.5 / 1068.5 150 / 1218.5 1000 / 2218.5 Output Total 650 / 650 Balance 418.5 / 418.5 150 / 568.5 1000 / 1568.5 Weight last 48 hrs Weight 234 lb Physical Exam Narrative: Patient presents alert and oriented x3 with a good general appearance normal mood and affect. Normal coordination normal stability. Mild tenderness around the incisional site with the incision appear to be clean and dry. No signs of erythema or drainage. No signs of infection. Patient denies any fevers or chills. 4/5 motor strength both lower extremities with negative straight leg raise bilaterally. Calves are supple no medial thigh tenderness. Pulses are 2+ at the dorsalis pedis and posterior tibial region. Good capillary refill throughout normal sensation light touch both lower extremities. Urinary Catheter Management: Miranda: Cath Placed During This Visit: yes, but has since been removed by the nurse Reason for Continuing Indwelling Catheter: Decision to DC Catheter Urinary Catheter Date of Insertion: 08/21/22 Urinary Catheter Time of Insertion: 09:30 Date Urinary Catheter Removed: 08/22/22 Time Urinary Catheter Discontinued: 13:35 Data 08/22/22 06:19 A&P Assessment and plan (1) Incidental durotomy: Physical therapy to mobilize. Continue incentive spirometer for pulmonary toilet. Discharge home later this morning if stable. See her back in the office in 1 week's time for wound check and she will call if she is having problems. (2) Status post lumbar spinal fusion: Attestations Medical Necessity Statement*: home later this AM Coding Level of Care Code Acute Code for Chg Fwd Diagnoses Incidental durotomy G97.41 Status post lumbar spinal fusion Z98.1
[2022-08-23 08:00] VITALS: BP 105/69; PULSE 100; RESP 16; RESP 18; TEMP 36.9; O2SAT 93; O2SAT 96
[2022-08-23] MEDS: cyanocobalamin 1,000 mcg Tablet 1000 MCG PO (10:10)
[2022-08-23] MEDS: docusate sodium 100 mg Capsule PO (10:10)
[2022-08-23 11:20] VITALS: BP 105/69; PULSE 100; RESP 16; TEMP 36.9; O2SAT 96
--- NOTE | 2022-08-28 11:41 | PM.DCS ---
Discharge Providers Date of Admission: 08/21/22 14:09 Date of Discharge: August 23, 2022 Attending Provider at Admission: Alli Tobias DO Attending Provider at Discharge: Alli Tobias DO Primary Care Provider: Kedar Rubi MD Diagnoses at Discharge Discharge Diagnosis (1) Incidental durotomy: Status: Acute (2) Status post lumbar spinal fusion: Status: Acute Reason for Visit Reason for Visit: Sacrum fusion w cage and decomp [id number], Hospital Course Hospital Course pain was controlled on second day Physical Exam Urinary Catheter Management: Miranda: Cath Placed During This Visit: yes, but has since been removed by the nurse Reason for Continuing Indwelling Catheter: Decision to DC Catheter Urinary Catheter Date of Insertion: 08/21/22 Urinary Catheter Time of Insertion: 09:30 Date Urinary Catheter Removed: 08/22/22 Time Urinary Catheter Discontinued: 13:35 Discharge Data Studies Completed and Pending Completed Studies During Hospitalization Category Date Time Status XR lumbar spine 1V 14260 Routine Exams 08/21/22 Completed XR lumbar spine 2-3V* 69595 Routine Exams 08/21/22 14:08 Completed Radiology Impressions Lumbar Spine X-Ray 08/21/22 14:08 IMPRESSION: Postoperative spine without abnormality. Laboratory Results WBC 17.7 10^3/uL (4.0-10.0) H 08/21/22 13:13 RBC 3.32 10^6/uL (4.1-5.3) L 08/21/22 13:13 Hgb 10.8 g/dL (11.5-15.3) L 08/22/22 06:19 Hct 33.5 % (37.0-47.0) L 08/22/22 06:19 MCV 99.1 fl (81-99) H 08/21/22 13:13 MCH 31.0 pg (28.0-34.0) 08/21/22 13:13 MCHC 31.3 g/dL (30.0-36.0) 08/21/22 13:13 RDW 14.1 % (12.1-15.1) 08/21/22 13:13 Plt Count 275 10^3/cmm (130-400) 08/21/22 13:13 MPV 11.1 fL (7.4-10.4) H 08/21/22 13:13 Neut % (Auto) 85.5 % 08/21/22 13:13 Lymph % (Auto) 9.8 % 08/21/22 13:13 [place] % (Auto) 2.6 % 08/21/22 13:13 Eos % (Auto) 0.2 % 08/21/22 13:13 Baso % (Auto) 0.4 % 08/21/22 13:13 Neut # (Auto) 15.11 10^3/uL (1.8-7.7) H 08/21/22 13:13 Lymph # (Auto) 1.7 10^3/uL (0.8-4.8) 08/21/22 13:13 [place] # (Auto) 0.5 10^3/uL (0.2-0.9) 08/21/22 13:13 Eos # (Auto) 0.0 10^3/uL (0.0-0.8) 08/21/22 13:13 Baso # (Auto) 0.1 10^3/uL (0.0-0.1) 08/21/22 13:13 Nucleated RBC % (auto) 0 % 08/21/22 13:13 Nucleated RBCs # 0.0 /100WBC 08/21/22 13:13 Lymphoma Panel See report 08/21/22 11:29 Immunophenotype Interp See report 08/21/22 11:29 Blood Type O Negative 08/21/22 07:45 Rho(D) Type Negative 08/21/22 07:45 Antibody Screen TNP 08/21/22 07:45 PEG Antibody Screen Negative 08/21/22 07:45 Crossmatch See Detail 08/21/22 07:45 Vitals Last Vital Signs Temp 98.5 F 08/23/22 11:20 Pulse 100 08/23/22 11:20 Resp 16 08/23/22 11:20 BP 105/69 08/23/22 11:20 Pulse Ox 96 08/23/22 11:20 O2 Del Method 08/23/22 08:00 O2 Flow Rate 6 08/21/22 20:00 Discharge Plan Discharge Patient Disposition: Home Condition: Stable Prescriptions: New hydrocodone-acetaminophen 10-325 mg tablet 1 tab PO Q4H PRN (Reason: pain) 7 Days Qty: 40 0RF Continued bupropion HCl [Wellbutrin XL] 150 mg tablet extended release 24 hr 150 mg PO QAM Qty: 30 11RF mecobalamin (vitamin B12) 1,000 mcg tablet,disintegrating 1,000 mcg sublingual DAILY Rx Instructions: place tablet under tongue and allow to dissolve for at least30 secs before swallowing alprazolam [Xanax] 0.25 mg tablet 0.25 mg PO BID PRN (Reason: Anxiety) ibuprofen 800 mg tablet 800 mg PO TID PRN (Reason: Pain) 30 Days Qty: 90 0RF Erivedge 150 mg capsule 150 mg PO DIRECTED Qty: 21 4RF Rx Instructions: Take 1 PO DAILY FOR 1 week then off for 2 weeks - repeat diazepam [Valium] 2 mg tablet 5 mg PO TID PRN (Reason: muscle spasm) Qty: 30 0RF (DME) Bone Growth Stimulator E0748 See Rx Instructions .Route .MEDSUPPLY Qty: 1 0RF Rx Instructions: As directed esomeprazole magnesium [Nexium] 20 mg Capsule,Delayed Release(Dr/Ec) 20 mg PO DAILY PRN (Reason: Acid Reflux) cetirizine [Zyrtec] 10 mg Tablet 10 mg PO DAILY PRN (Reason: Allergy Symptoms) escitalopram oxalate [Lexapro] 10 mg tablet 10 mg PO QAM Discontinued hydrocodone-acetaminophen 5-325 mg tablet 1 tab PO BID PRN (Reason: pain) 30 Days Qty: 60 0RF Discharge Orders: Discharge Order (Routine); Ordered 08/23/22 Ordered By: Kuldeep Guadarrama Other Ambulatory Orders: DME: Walker (Order) Location: None Selected Ordered By: Alli Tobias Referrals: Alli Tobias, DO [Physician] - 1-3 days (please call and schedule a follow up appointment within 1-3 days. ) Discharge Diet: Advance as tolerated Discharge Activity: Limit activity as instructed Patient Instructions: Hydrocodone/Acetaminophen (By mouth) (Vicodin, [place], Lortab), Lumbar Spinal Fusion (DC), Opioid Safety, Post Anesthesia Care Activity Restrictions/Additional Instructions: Thank you for choosing [facility] for your care! The following is a list of instructions, from your provider, to follow upon your discharge to ensure you have the optimal recovery from your recent injury or surgery. Follow-up care is a adkins part of your treatment and safety. Be sure to make and go to all appointments and call your doctor if you are having problems. If you do not already have a follow-up appointment made, call Dr. Tobias's] office in the next 1-3 days to make follow up appointment for 1 weeks at [phone]. It is also a good idea to know your test results and keep a list of the medicines you take. Medications will be prescribed for you at your provider's discretion. These medications are to be used as instructed; if they are taken more often that prescribed they will not be refilled early and in most cases will not be refilled at all. > When a refill is needed, you should contact imtiaz villatoro 2-3 business days before your prescription runs out. Medications will NOT be refilled by executive search consultant providers after hours! > Many pain medications contain Tylenol (Acetaminophen). Do not consume more than 4,000 mg of Tylenol per day in total with any combination of medications. > Pain medications can cause constipation. Please use an over the counter stool softener as directed, while taking pain medications. Consult your local pharmacist with questions or recommendations on stool softeners. If constipation persists, contact our office or your primary care provider. > While under our care, you are not to receive pain medications or other controlled substances from any other provider unless our office is notified and approves. Any attempts to do so will result in refusal to prescribe any further pain medications and possible dismissal from our practice. ? Walking is essential for the healing process after surgery. We would like you to slowly advance your walking. This should be done on relatively flat clear ground (inside or out) or can be done on a treadmill. Remember this goal does not have to happen all at once, slowly increase your distance and duration. This can be broken into more more than one walk per day as tolerated. Patients who walk as directed after surgery rarely require Physical Therapy. In the unlikely event this issue arises your provider will direct hospital staff to make the appropriate arrangements. ? No lifting over 5 pounds {a gallon of milk) or bending/twisting until further notice. Each of these activities places an unnecessary amount of stress onto the body and can impede the delicate healing process. > Instead of bending at the waist, keep your back straight and bend at the knees. > Instead of twisting your torso, keep your back straight and turn your entire body with your feet. ? You may sleep in any position which makes you comfortable. Many patients find comfort sleeping in a reclining chair. It is not abnormal to have difficulty sleeping for the first several weeks following your surgery. We recommend trying Benadry! or Tylenol PM as directed to help with your sleeping difficulties. Both medications are over the counter and available without prescription. ? NO SMOKING!!! Smoking dramatically increases the probability of developing postoperative wound infections. ? Common complaints after lumbar and/or thoracic spine surgery include, but are not limited to: numbness and/or tingling in the legs, pain around the incision and surrounding tissues, muscle spasms, or stiffness of the middle to low back. Contact our office if these symptoms persist or if an acute change occurs. ? No driving for the first 3-5days, and not while taking narcotics until seen at your follow-up appointment and cleared. There are no restrictions for riding on short trips, however if you take a longer trip, arrangements should be made to make regular stops to get out of the vehicle and stretch . ? Swelling is an unfortunate event that will take place with any surgery and is the primary source of your postoperative discomfort. While walking and regular approved activities helps control inflammation, there are additional steps you can take to minimize swelling. > Place ice over the surgical site and surrounding tissue for twenty minutes, followed by applying a low/medium heat (heating pad) for an additional twenty minutes every 1-2 hours as needed for painrelief. > You may use of over the counter anti-inflammatory medications (Ibuprofen, Motrin, Aleve, Advil, etc) as directed on the package label. These types of medicines will significantly reduce the amount of discomfort you experience after surgery from swelling. It should be noted that if you have and allergy to any of these medications, or a history of ulcers or kidney disease you should consult you primary care provider prior to starting these medications. Discharge Attestations Time Spent in Discharge Care*: less than 30 min Quality Metrics Clinical Quality Measures [ No reported AMI, CVA or VTE this stay] Coding Level of Care Code Acute Code for Chg Fwd Diagnoses Incidental durotomy G97.41 Status post lumbar spinal fusion Z98.1
== END 2022-08-23 11:22 | disposition home or self-care (01) ==
LOC: MEDSURG 23:03
PROVIDERS: Anesthesiology; Admitting Provider Orthopaedic Surgery; PCP Family Medicine; Visit Provider Orthopaedic Surgery
PROC: (CPT 20930; principal; 2022-08-21 08:25)
PROC: (CPT 63005; 2022-08-21 08:25)
DX: M43.16 Spondylolisthesis, lumbar region (principal); M54.16 Radiculopathy, lumbar region; G97.41 Accidental puncture or laceration of dura during a procedure; K21.9 Gastro-esophageal reflux disease without esophagitis; E78.5 Hyperlipidemia, unspecified; Z87.891 Personal history of nicotine dependence
CPT/HCPCS: 20930; 20936; 20939; 22633; 22634; 22842; 61783; 63052; 63053; 36415; 36430; 51702; 72020; 72100; 76000; 85014; 85018; 85025; 86850; 86900; 86920; 88184; 88185; 97116; 97161; 97530; C1713; C9359; G0378; J0131; J0330; J0690; J1100; J1170; J1200; J1644; J1885; J2250; J2270; J2370; J2405; J2704; J3010; J3370; J3490; J7030; J7120; P9016; P9045

== ENCOUNTER 2022-08-31 18:37 | Emergency (ER) | payer BC, SELFPAY ==
[2022-08-31 18:48] VITALS: BP 108/67; PULSE 104; RESP 18; TEMP 36.6; O2SAT 97; BMI 43.3
--- NOTE | 2022-08-31 20:03 | CTR_ITS ---
PROCEDURE INFORMATION: Exam: CT Lumbar Spine With Contrast Exam date and time: 08/31/2022 8:58 PM Age: 47 years old Clinical indication: Other: Post op drainage; Prior surgery; Surgery date: <1 month; Surgery type: 10 days post-op l-sp fusion; Additional info: Post op drainage spinal fusion TECHNIQUE: Imaging protocol: Computed tomography of the lumbar spine with contrast. Radiation optimization: All CT scans at this facility use at least one of these dose optimization techniques: automated exposure control; mA and/or kV adjustment per patient size (includes targeted exams where dose is matched to clinical indication); or iterative reconstruction. Contrast material: OMNI 350; Contrast volume: 100 ml; Contrast route: INTRAVENOUS (IV); REPORTING DATA: Count of CT and Cardiac NM exams in prior 12 months: This patient has received [address] and 0 known cardiac nuclear medicine studies in the 12 months prior to the current study. COMPARISON: MR lumbar spine wo/w con [id number] 04/24/2022 8:09 AM RADIATION DOSE METRICS: Total DLP (mGy-cm): 1649.41 FINDINGS: Bones/joints: L4-S1 fusion seen with disc spacers. L4 and L5 laminectomies. No acute fracture or acute subluxation. Moderate lower lumbar facet arthropathy. Liver: A few minute hepatic cystic foci are visualized. Soft tissues: Extensive back subcutaneous edema. Multiple subcutaneous back fluid collections measure up to 5.6 cm. There is paraspinal fluid as well. CT/CT lumbar spine w con [id number] IMPRESSION: 1. No acute fracture or acute subluxation. 2. Recent lumbar fusion as described with paraspinal edema and subcutaneous fluid collections/edema. 3. Intrathecal space is not well studied due to artifacts and CT modality limitations.
[2022-08-31 20:18] LABS: Basophils # 0.1 10^3/uL (0.0-0.1); Basophils % 0.9 %; Eosinophils # 0.7 10^3/uL (0.0-0.8); Eosinophils % 6.7 %; Hematocrit 32.8 % (37.0-47.0); Hemoglobin 10.1 g/dL (11.5-15.3); Lymphocytes % 20.1 %; Mean Corpuscular HGB Conc 30.8 g/dL (30.0-36.0); Mean Corpuscular Hemoglobin 29.3 pg (28.0-34.0); Mean Corpuscular Volume 95.1 fl (81-99); Monocytes % 9.8 %; Neutrophils # 5.94 10^3/uL (1.8-7.7); Neutrophils % 60.8 %; Nucleated Red Blood Cells % 0 %; Platelet Count 536 10^3/cmm (130-400); Red Blood Count 3.45 10^6/uL (4.1-5.3); Red Cell Distribution Width 15.1 % (12.1-15.1); White Blood Count 9.8 10^3/uL (4.0-10.0)
[2022-08-31 20:37] LABS: Alanine Aminotransferase 16 U/L (0-33); Albumin Level 3.5 g/dL (3.5-5.2); Alkaline Phosphatase 79 U/L (35-105); Anion Gap 14.2 (5-19); Aspartate Amino Transferase 19 U/L (0-32); Blood Urea Nitrogen 9 mg/dL (6-20); C Reactive Protein 46.2 mg/L (0.0-4.9); Calcium 8.8 mg/dL (8.5-10.5); Carbon Dioxide 29 mmol/L (22-29); Chloride 98 mmol/L (98-107); Creatinine Clr Calc Pharmacy 87.2102; Globulin 3.1 g/dL (1.3-4.6); Glomerular Filtration Rate 66.5 mL/min (90-130); Glucose 87 mg/dL (65-115); Osmolality Calculated 282 mOsm/kg (285-295); Potassium 4.2 mmol/L (3.5-5.1); Sodium 137 mmol/L (136-145); Total Bilirubin 0.2 mg/dL (0.15-1.2); Total Protein 6.6 g/dL (6.6-8.7)
[2022-08-31] MEDS: iohexol 350 mg/mL 500 mL Btl (per mL) IV (20:39)
--- NOTE | 2022-08-31 20:54 | ED_ITS ---
HPI - General Adult General: Chief complaint: General Medical Stated complaint: excessive drainage post back surgery Time Seen by Provider: 08/31/22 19:26 Source: patient History of Present Illness: 47-year-old female with a history of lumbar spinal fusion surgery on 08/21. She has done decently well postoperatively. Today she noticed an increase in drainage from her incision site. No fever. No significant increase in pain. She soaked her bandage, and clothes. Daughter describes fluid is bloody and yellow. Onset (ago): hour(s) Location: back Radiation: non-radiation Severity: moderate Associated symptoms: Deny chest pain, confusion, dyspnea, fevers/chills, rash, short of breath, syncope, vomiting or weakness Treatments prior to arrival: none Review of Systems Const: Denies: fever(s) Card: Denies: chest pain or syncope Resp: Denies: dyspnea GI: Denies: vomiting Skin/Breast: Denies: rash Neuro: Denies: confusion PFSH ED PFSH: Medical History BCC (basal cell carcinoma of skin) Depression Encounter for wellness examination History of non-Hodgkin's lymphoma Hodgkins lymphoma Hyperlipidemia Thyroid nodule Surgical History H/O bladder repair surgery History of hysterectomy History of shoulder surgery Family History Mother Colon cancer, Onset Age: 65 Denies family history of Ovarian cancer Diabetes Clotting disorder Heart disease Hyperlipidemia Breast cancer Anesthesia complication Bleeding disorder Hypertension Uterine cancer Thyroid condition Stroke Social History Smoking and tobacco status: former smoker Second hand smoke exposure: No Alcohol intake: current Alcohol intake frequency: few times a week Alcohol type: hard liquor Physical Exam Const: COMMON NORMALS: no acute distress GENERAL APPEARANCE: cooperative; not ill appearing and not frail appearing HENMT: COMMON NORMALS: normocephalic, atraumatic and Normal external nose present HEAD & SCALP: normocephalic and atraumatic FACE & SINUS: normal facial exam and face symmetric NOSE: Normal external nose present Eye: COMMON NORMALS: Equal, round and reactive pupils present and EOMs intact bilaterally PUPIL: Yes Equal, round and reactive pupils present Neck/C-Spine: GENERAL: Yes trachea midline Chest: CHEST: Yes Symmetrical chest wall rise Resp: COMMON NORMALS: normal respiratory effort, No retractions, No use of accessory muscles and clear to auscultation bilaterally AUSCULTATION: clear to auscultation bilaterally Cardio: COMMON NORMALS: regular rate and regular rhythm RATE: regular rate RHYTHM: regular rhythm GI: COMMON NORMALS: Normal to inspection, nondistended, normoactive bowel sounds present Extremity: COMMON NORMALS: no pedal edema Neuro: JANNETH COMA SCALE: document GCS findings Janneth coma scale eye opening: Spontaneous [place] coma scale verbal response: Orientated [place] coma scale motor response: Obey commands [place] coma scale total score: 15 SENSORY EXAM: Yes extremities (intact) Psych: COMMON NORMALS: speech normal SPEECH: Yes normal speech Skin: COMMON NORMALS: no rashes or lesions noted NARRATIVE SKIN EXAM: Incision clean and closed. No erythema. No active drainage currently. GENERAL SKIN EXAM: no rashes or lesions noted Course Vital Signs: Vital signs: Vital Signs Temperature 97.9 F 08/31/22 18:48 Pulse Rate 82 08/31/22 22:47 Respiratory Rate 18 08/31/22 18:48 Blood Pressure 118/79 08/31/22 22:47 Pulse Oximetry 99 08/31/22 22:47 Oxygen Delivery Me thod 08/31/22 22:[address] [facility] - General Adult Medical Decision Making Vitals are good. White blood cell count is normal at 9.8. Hemoglobin is stable at 10.1. BMP is normal. CRP is minimally elevated at 46. CT shows some paraspinal edema and subcutaneous fluid collections with some edema. This is likely a seroma. Fluid drainage appears nonpurulent. Wound appears noncellulitic. It is not overly tender. She will be covered with antibiotics just for the drainage. She has a follow-up appointment with her surgeon in 5 days. She will be given supplies for dressing changes given the amount of drainage she is experiencing currently. She knows to return for worsening, fever, etc. Lab Data 08/31/22 20:05 08/31/22 20:05 Radiology Impressions Lumbar Spine CT 08/31/22 20:03 IMPRESSION: 1. No acute fracture or acute subluxation. 2. Recent lumbar fusion as described with paraspinal edema and subcutaneous fluid collections/edema. 3. Intrathecal space is not well studied due to artifacts and CT modality limitations. Laboratory Results WBC 9.8 10^3/uL (4.0-10.0) 08/31/22 20:05 RBC 3.45 10^6/uL (4.1-5.3) L 08/31/22 20:05 Hgb 10.1 g/dL (11.5-15.3) L 08/31/22 20:05 Hct 32.8 % (37.0-47.0) L 08/31/22 20:05 MCV 95.1 fl (81-99) 08/31/22 20:05 MCH 29.3 pg (28.0-34.0) 08/31/22 20:05 MCHC 30.8 g/dL (30.0-36.0) 08/31/22 20:05 RDW 15.1 % (12.1-15.1) 08/31/22 20:05 Plt Count 536 10^3/cmm (130-400) H 08/31/22 20:05 MPV 10.0 fL (7.4-10.4) 08/31/22 20:05 Neut % (Auto) 60.8 % 08/31/22 20:05 Lymph % (Auto) 20.1 % 08/31/22 20:05 [place] % (Auto) 9.8 % 08/31/22 20:05 Eos % (Auto) 6.7 % 08/31/22 20:05 Baso % (Auto) 0.9 % 08/31/22 20:05 Neut # (Auto) 5.94 10^3/uL (1.8-7.7) 08/31/22 20:05 Lymph # (Auto) 2.0 10^3/uL (0.8-4.8) 08/31/22 20:05 [place] # (Auto) 1.0 10^3/uL (0.2-0.9) H 08/31/22 20:05 Eos # (Auto) 0.7 10^3/uL (0.0-0.8) 08/31/22 20:05 Baso # (Auto) 0.1 10^3/uL (0.0-0.1) 08/31/22 20:05 Nucleated RBC % (auto) 0 % 08/31/22 20:05 Nucleated RBCs # 0.0 /100WBC 08/31/22 20:05 Sodium 137 mmol/L (136-145) 08/31/22 20:05 Potassium 4.2 mmol/L (3.5-5.1) 08/31/22 20:05 Chloride 98 mmol/L (98-107) 08/31/22 20:05 Carbon Dioxide 29 mmol/L (22-29) 08/31/22 20:05 Anion Gap 14.2 (5-19) 08/31/22 20:05 BUN 9 mg/dL (6-20) 08/31/22 20:05 Creatinine 0.9 mg/dL (0.5-0.9) 08/31/22 20:05 GFR Calculation 66.5 mL/min (90-130) L 08/31/22 20:05 Glucose 87 mg/dL (65-115) 08/31/22 20:05 Calculated Osmolality 282 mOsm/kg (285-295) L 08/31/22 20:05 Calcium 8.8 mg/dL (8.5-10.5) 08/31/22 20:05 Total Bilirubin 0.2 mg/dL (0.15-1.2) 08/31/22 20:05 AST 19 U/L (0-32) 08/31/22 20:05 ALT 16 U/L (0-33) 08/31/22 20:05 Alkaline Phosphatase 79 U/L (35-105) 08/31/22 20:05 C-Reactive Protein 46.2 mg/L (0.0-4.9) H 08/31/22 20:05 Total Protein 6.6 g/dL (6.6-8.7) 08/31/22 20:05 Albumin 3.5 g/dL (3.5-5.2) 08/31/22 20:05 Globulin 3.1 g/dL (1.3-4.6) 08/31/22 20:05 Discharge Plan Discharge Patient Disposition: Home Clinical Impression: Status post lumbar spinal fusion, Seroma after procedure Condition: Stable Prescriptions: New Bactrim DS 800-160 mg tablet 1 tab PO BID 10 Days Qty: 20 0RF No Action bupropion HCl [Wellbutrin XL] 150 mg tablet extended release 24 hr 150 mg PO QAM Qty: 30 11RF mecobalamin (vitamin B12) 1,000 mcg tablet,disintegrating 1,000 mcg sublingual DAILY Rx Instructions: place tablet under tongue and allow to dissolve for at least30 secs before swallowing calcium carbonate [Calcium 600] 600 mg calcium (1,500 mg) tablet 600 mg PO DAILY cholecalciferol (vitamin D3) 25 mcg (1,000 unit) capsule 25 mcg PO DAILY gabapentin 300 mg capsule 300 mg PO TID Qty: 90 0RF alprazolam [Xanax] 0.25 mg tablet 0.25 mg PO BID PRN (Reason: Anxiety) ibuprofen 800 mg tablet 800 mg PO TID PRN (Reason: Pain) 30 Days Qty: 90 0RF Erivedge 150 mg capsule 150 mg PO DIRECTED Qty: 21 4RF Rx Instructions: Take 1 PO DAILY FOR 1 week then off for 2 weeks - repeat diazepam [Valium] 2 mg tablet 5 mg PO TID PRN (Reason: muscle spasm) Qty: 30 0RF (DME) Bone Growth Stimulator E0748 See Rx Instructions .Route .MEDSUPPLY Qty: 1 0RF Rx Instructions: As directed esomeprazole magnesium [Nexium] 20 mg Capsule,Delayed Release(Dr/Ec) 20 mg PO DAILY PRN (Reason: Acid Reflux) cetirizine [Zyrtec] 10 mg Tablet 10 mg PO DAILY PRN (Reason: Allergy Symptoms) escitalopram oxalate [Lexapro] 10 mg tablet 10 mg PO QAM Discharge Orders: Discharge ED (Routine); Ordered 08/31/22 Ordered By: Les Vega Referrals: Alli Tobias DO [Physician] - 4-7 days Kedar Rubi MD [Primary Care Provider] - Patient Instructions: Seroma (DC), Opioid Safety, Pain Management Activity Restrictions/Additional Instructions: Dressing changes as instructed 3 times a day. Return for fever greater than 100, worsening pain, spreading redness, opening of your wound, other concerning symptoms. Follow-up with your doctor next week. Coding Level of Care Code ED Terminal Supervisor for [facility]
[2022-08-31 22:47] VITALS: BP 118/79; PULSE 82; O2SAT 99
[2022-08-31] MEDS: ondansetron 2 mg/ML SDV 2 mL 4 MG IVP (22:47)
[2022-08-31] MEDS: HYDROmorphone 1 mg/mL INJ 1 mL IVP (22:51)
== END 2022-08-31 23:15 | disposition home or self-care (01) ==
PROVIDERS: Emergency Provider Emergency Medicine; PCP Family Medicine
DX: L76.34 Postprocedural seroma of skin and subcutaneous tissue following other procedure (principal); Z98.1 Arthrodesis status
CPT/HCPCS: 72132; 80053; 85025; 86140; 96374; 96375; 99285; J1170; J2405; Q9967

== ENCOUNTER 2022-09-07 22:05 | Emergency (ER) | payer BC, SELFPAY ==
[2022-09-07 22:29] VITALS: BP 153/79; PULSE 94; RESP 18; TEMP 36.9; O2SAT 98; BMI 43.3
--- NOTE | 2022-09-08 00:21 | ED_ITS ---
HPI - Wound/Laceration General: Chief Complaint: Wound/Laceration Stated Complaint: infection post op back surgery Time Seen by Provider: 09/08/22 00:21 History of Present Illness: 47-year-old female brought in by family for concerns of abnormal surgical wound. Patient has been using Bactrim for possible surgical wound infection. Patient has had decrease in the amount of drainage at the site, but now there is some discoloration and a small opening developed within the wound. When patient had seen Dr. Tobias earlier in the week he had removed the sutures and placed Steri-Strips. Patient denies any fever or significant change in pain. Review of Systems General: Reports: 10 or more systems reviewed and unremarkable except in HPI and below GI: Denies: abdominal pain Musc: Denies: neck pain Skin/Breast: Reports: new lesions PFSH ED PFSH: Medical History BCC (basal cell carcinoma of skin) Depression Encounter for wellness examination History of non-Hodgkin's lymphoma Hodgkins lymphoma Hyperlipidemia Thyroid nodule Surgical History H/O bladder repair surgery History of hysterectomy History of shoulder surgery Family History Mother Colon cancer, Onset Age: 65 Denies family history of Ovarian cancer Diabetes Clotting disorder Heart disease Hyperlipidemia Breast cancer Anesthesia complication Bleeding disorder Hypertension Uterine cancer Thyroid condition Stroke Social History Smoking and tobacco status: former smoker Second hand smoke exposure: No Alcohol intake: current Alcohol intake frequency: few times a week Alcohol type: hard liquor Physical Exam Const: COMMON NORMALS: alert HENMT: COMMON NORMALS: normocephalic HEAD & SCALP: normocephalic MOUTH: Normal oral and palatal mucosa present Neck/C-Spine: COMMON NORMALS: full ROM Resp: COMMON NORMALS: normal respiratory effort and clear to auscultation bilaterally AUSCULTATION: clear to auscultation bilaterally Cardio: COMMON NORMALS: regular rate and regular rhythm RATE: regular rate RHYTHM: regular rhythm Back/Pelvis: OTHER: Healing linear surgical wound. Upper part of the wound has a small area of dehiscence is approximately 2 mm opening, with a surrounding 1 cm db-shaped whitish tissue/eschar. Neuro: SENSORIUM/ORIENTATION: Yes alert Skin: WOUNDS: Yes surgical site (Small area of dehiscence with surrounding eschar) Course Vital Signs: Vital signs: Vital Signs Temperature 98.4 F 09/07/22 22:29 Pulse Rate 94 09/07/22 22:29 Respiratory Rate 18 09/07/22 22:29 Blood Pressure 153/79 09/07/22 22:29 Pulse Oximetry 98 09/07/22 22:29 MDM - Wound/Laceration Medical Decision Making 47-year-old female comes in today for complaints of abnormal surgical wound. On exam we note that at the upper area of the surgical wound there is a small opening where the family states drainage has occurred. There is a small db-shaped area of whitish eschar that has developed in the same area of this small opening. Differential diagnosis includes but not limited to wound necrosis, abscess, seroma. Suspect some mild necrosis at the surgical site due to poor healing. Recommend follow-up with Dr. Tobias and probable referral to wound management. Patient and family reported understanding of care plan and need for follow-up or return to the ER for worsening symptoms. Discharge Plan Discharge Patient Disposition: Home Clinical Impression: Abnormal surgical wound Qualifiers: Encounter type: initial encounter Qualified Code(s): T81.9XXA - Unspecified complication of procedure, initial encounter Condition: Stable Prescriptions: No Action bupropion HCl [Wellbutrin XL] 150 mg tablet extended release 24 hr 150 mg PO QAM Qty: 30 11RF mecobalamin (vitamin B12) 1,000 mcg tablet,disintegrating 1,000 mcg sublingual DAILY Rx Instructions: place tablet under tongue and allow to dissolve for at least30 secs before swallowing calcium carbonate [Calcium 600] 600 mg calcium (1,500 mg) tablet 600 mg PO DAILY cholecalciferol (vitamin D3) 25 mcg (1,000 unit) capsule 25 mcg PO DAILY gabapentin 300 mg capsule 300 mg PO TID Qty: 90 0RF hydrocodone-acetaminophen 5-325 mg tablet 1 tab PO Q4H PRN (Reason: pain) 7 Days Qty: 40 0RF alprazolam [Xanax] 0.25 mg tablet 0.25 mg PO BID PRN (Reason: Anxiety) ibuprofen 800 mg tablet 800 mg PO TID PRN (Reason: Pain) 30 Days Qty: 90 0RF Erivedge 150 mg capsule 150 mg PO DIRECTED Qty: 21 4RF Rx Instructions: Take 1 PO DAILY FOR 1 week then off for 2 weeks - repeat diazepam [Valium] 2 mg tablet 5 mg PO TID PRN (Reason: muscle spasm) Qty: 30 0RF (DME) Bone Growth Stimulator E0748 See Rx Instructions .Route .MEDSUPPLY Qty: 1 0RF Rx Instructions: As directed esomeprazole magnesium [Nexium] 20 mg Capsule,Delayed Release(Dr/Ec) 20 mg PO DAILY PRN (Reason: Acid Reflux) cetirizine [Zyrtec] 10 mg Tablet 10 mg PO DAILY PRN (Reason: Allergy Symptoms) escitalopram oxalate [Lexapro] 10 mg tablet 10 mg PO QAM Bactrim DS 800-160 mg tablet 1 tab PO BID 10 Days Qty: 20 0RF Discharge Orders: Discharge ED (Routine); Ordered 09/08/22 Ordered By: Gordo Babcock Referrals: Kedar Rubi MD [Primary Care Provider] - Patient Instructions: Wound Healing and Your Diet (ED) Activity Restrictions/Additional Instructions: Continue with daily wound dressing changes. Apply small amount of mupirocin ointment and a nonstick pad and secure with light tape. Follow-up with Dr. Tobias on Friday. Return to ER for worsening symptoms such as fever greater than 100.4, inability to hold fluids down, or new concerns. Coding Level of Care Code ED Track Inspecting Supervisor for [facility]
[2022-09-08 00:43] VITALS: PULSE 90; RESP 14; O2SAT 98
[2022-09-08] MEDS: mupirocin oint 22 gm 1 APPLIC TOPICAL (00:45)
== END 2022-09-08 00:53 | disposition home or self-care (01) ==
PROVIDERS: Emergency Provider Nurse Practitioner Family; PCP Family Medicine
DX: T81.9XXA Unspecified complication of procedure, initial encounter (principal); Z85.72 Personal history of non-Hodgkin lymphomas; E78.5 Hyperlipidemia, unspecified; Z87.891 Personal history of nicotine dependence; Z85.71 Personal history of Hodgkin lymphoma; Y83.9 Surgical procedure, unspecified as the cause of abnormal reaction of the patient, or of later complication, without mention of misadventure at the time of the procedure
CPT/HCPCS: 99283

== ENCOUNTER → 2022-09-10 08:12 | Outpatient (BNVA) | payer BC, SELFPAY | PROVIDERS: PCP Family Medicine; Visit Provider Orthopaedic Surgery | DX: Z47.89 Encounter for other orthopedic aftercare (principal); Z98.1 Arthrodesis status | CPT/HCPCS: 72100 ==

== ENCOUNTER → 2022-09-12 16:12 | Outpatient (BNVA) | payer BC, SELFPAY | PROVIDERS: PCP Family Medicine; Visit Provider Family Medicine | DX: T81.9XXA Unspecified complication of procedure, initial encounter (principal); Z98.1 Arthrodesis status; Y83.9 Surgical procedure, unspecified as the cause of abnormal reaction of the patient, or of later complication, without mention of misadventure at the time of the procedure | CPT/HCPCS: 85025; 86140 ==

== ENCOUNTER → 2022-09-24 08:19 | Outpatient (BNVA) | payer BC, SELFPAY | PROVIDERS: PCP Family Medicine; Visit Provider Orthopaedic Surgery | DX: Z47.89 Encounter for other orthopedic aftercare (principal); Z98.1 Arthrodesis status | CPT/HCPCS: 72100 ==

== ENCOUNTER → 2022-10-07 11:54 | Outpatient (BNVA) | payer BC, SELFPAY | PROVIDERS: PCP Family Medicine; Visit Provider Internal Medicine Rheumatology | DX: Z79.899 Other long term (current) drug therapy (principal); M19.90 Unspecified osteoarthritis, unspecified site | CPT/HCPCS: 36415; 73130; 86431 ==

== ENCOUNTER 2022-10-10 08:08 | Day surgery (SDC) | payer BC, SELFPAY ==
[2022-10-08 10:27] VITALS: BMI 42.0
[2022-10-10 08:21] VITALS: BP 149/85; PULSE 84; RESP 18; TEMP 36.4; O2SAT 97
[2022-10-10] MEDS: sodium chloride 0.9% 1,000 ML 30 ML IV (08:35)
--- NOTE | 2022-10-10 09:01 | P.ANESASSM_ITS ---
Pre-Anesthetic Assessment Height/Weight: Height 1.57 m Weight 104.326 kg Temp Pulse Resp BP Pulse Ox O2 Del Method 97.5 F L 84 18 149/85 97 Room Air 10/10/22 08:21 10/10/22 08:21 10/10/22 08:21 10/10/22 08:21 10/10/22 08:21 10/10/22 08:21 Preop Diagnosis: Spondylolisthesis L4-5, lumbar radiculopathy Operation Date: 10/10/22 09:45 Proposed Procedures p [id number] Colon K59,Z12.11,28626 Z80(Not Applicable) - Igor Fischer DO Familial anesthetic complications: None Was Beta Maricruz taken within 24 hours: N/A Was Clonidine taken within 24 hours: N/A Last intake: Intake Last Liquid Date 10/09/22 Last Liquid Time 23:46 Last Solid Date 10/08/22 Last Solid Time 22:00 Social Alcohol (up to 2 drinks a night, sometimes hard liquor such as whiskey) and No tobacco Airway Mallampati: Class II Dentition: full Metabolic Morbid Obesity [facility] [place] Hx hodgkin's lymphoma Anesthetic Plan ASA status: 3 Anesthesia: MAC Risk of > 500 ml blood loss (7ml/kg in children): No Medications/Allergies Home Medications Medication Instructions Recorded Confirmed Last Taken Type alprazolam 0.25 mg tablet (Xanax) 0.25 mg PO BID PRN Anxiety 01/12/22 10/08/22 07/10/22 History vismodegib 150 mg capsule 150 mg PO DIRECTED #21 caps 02/06/22 10/08/22 10/03/22 Rx (Erivedge) bupropion HCl 150 mg 24 hr tablet, 150 mg PO QAM #30 tabs 03/07/22 10/08/22 10/08/22 Rx extended release (Wellbutrin XL) esomeprazole magnesium 20 mg 20 mg PO DAILY PRN Acid Reflux 04/22/22 10/08/22 10/08/22 History capsule,delayed release (Nexium) cetirizine 10 mg tablet (Zyrtec) 10 mg PO DAILY PRN Allergy Symptoms 04/24/22 10/08/22 08/21/22 06:30 History escitalopram oxalate 10 mg tablet 10 mg PO QAM 04/24/22 10/08/22 10/08/22 History (Lexapro) diazepam 2 mg tablet (Valium) 5 mg PO TID PRN muscle spasm #30 04/30/22 10/08/22 06/26/22 Rx tabs mecobalamin (vitamin B12) 1,000 1,000 mcg sublingual DAILY 06/17/22 10/08/22 10/08/22 History mcg disintegrating tablet,sublingual Bone Growth Stimulator E0748 #1 ea 08/05/22 10/07/22 Unknown Rx calcium carbonate 600 mg calcium 600 mg PO DAILY 08/29/22 10/08/22 10/08/22 History (1,500 mg) tablet (Calcium) cholecalciferol (vitamin D3) 25 25 mcg PO DAILY 08/29/22 10/08/22 10/08/22 History mcg (1,000 unit) capsule hydrocodone 5 mg-acetaminophen 325 1 - 2 tab PO .q4-6hrs PRN Postop 10/03/22 10/08/22 10/08/22 Rx mg tablet pain 5 days #40 tabs acetaminophen 325 mg tablet 325 mg PO PRN PRN Pain 10/08/22 10/08/22 10/08/22 History (Tylenol) prednisone 20 mg tablet See Rx Instructions PO .COMPLEX 10/08/22 10/08/22 Unknown Rx PRN joint pain flare #10 tabs Allergies Allergy/AdvReac Type Severity Reaction Status Date / Time azithromycin [From Zithromax] Allergy rash Verified 10/08/22 10:21 Current Medications Generic Name Dose Route Start Last Admin Trade Name Freq PRN Reason Stop Dose Admin Sodium Chloride 1,000 mls @ 30 mls/hr 10/10/22 08:15 10/10/22 08:35 Sodium Chloride 0.9% IV 10/11/22 08:14 30 mls/hr .Q24H KEYLA Administration PFSH Anesthesia Medical History (Updated 10/07/22 @ 12:08 by Jadiel Holman MD) BCC (basal cell carcinoma of skin) Depression Encounter for wellness examination History of non-Hodgkin's lymphoma Hodgkins lymphoma Hyperlipidemia Oligoarthritis Osteoarthritis of knees, bilateral Thyroid nodule Surgical History H/O bladder repair surgery History of hysterectomy History of lumbar fusion History of shoulder surgery Family History (Updated 10/07/22 @ 11:01 by Viola Bnoilla LPN) Mother Colon cancer, Onset Age: 65 Other CAD (coronary artery disease) Cancer Denies family history of Rheumatoid arthritis Ovarian cancer Diabetes Lupus Clotting disorder Heart disease Hyperlipidemia Chronic kidney disease (CKD) Breast cancer Anesthesia complication Bleeding disorder Lung disease Hypertension Uterine cancer Thyroid condition Stroke Social History Smoking and tobacco status: former smoker Second hand smoke exposure: No Alcohol intake: current Alcohol intake frequency: few times a week Alcohol type: hard liquor Substance/Drug Use: never Data Anesthesia Cardiac Studies: No Data to Display
--- NOTE | 2022-10-10 09:49 | W.PM.OPSUD ---
Surgery/Procedure H&P Update DATE OF PROCEDURE: October 10, 2022 DATE H&P PERFORMED: 09/17/22 H&P UPDATE INFORMATION: I have reviewed H&P completed within last 30 days, I have examined patient prior to procedure and No changes to prior documentation PREOP DIAGNOSIS: Spondylolisthesis L4-5, lumbar radiculopathy PLANNED PROCEDURE: Operation Date: 10/10/22 09:45 Proposed Procedures p [id number] Colon K59,Z12.11,80596 Z80(Not Applicable) - Igor Fischer DO
[2022-10-10 10:07] VITALS: BP 96/64; PULSE 72; RESP 20; TEMP 36.1; O2SAT 92
[2022-10-10 10:22] VITALS: BP 124/76; PULSE 81; RESP 18; O2SAT 96
--- NOTE | 2022-10-10 13:45 | ANE.PACU2 ---
Inpatient post-anesthesia follow up: Airway intact: Yes Vital signs: Temperature 97.0 F Pulse Rate 81 Respiratory Rate 18 Blood Pressure 124/76 Pulse Oximetry 96 Oxygen Delivery Me thod Room Air Oxygen Flow Rate Fraction of Inspir ed Oxygen Hydration adequate: Yes Nausea and vomiting: No Pain level: 1 Mental status: Baseline
== END 2022-10-10 10:40 | disposition home or self-care (01) ==
LOC: GILAB 10:13 → MEDSURG 03-20 18:52
PROVIDERS: PCP Family Medicine; Visit Provider Surgery
PROC: 0DJD8ZZ Inspection of Lower Intestinal Tract, Via Natural or Artificial Opening Endoscopic (ICD-10-PCS; CPT 45378; principal; 2022-10-10 09:45)
DX: Z12.11 Encounter for screening for malignant neoplasm of colon (principal); K64.8 Other hemorrhoids; E78.5 Hyperlipidemia, unspecified; E66.01 Morbid (severe) obesity due to excess calories; Z68.41 Body mass index [BMI] 40.0-44.9, adult; Z79.899 Other long term (current) drug therapy; Z87.891 Personal history of nicotine dependence; Z80.0 Family history of malignant neoplasm of digestive organs
CPT/HCPCS: 45378; J2704; J7030

== ENCOUNTER → 2022-11-26 09:48 | Outpatient (BNVA) | payer BC, SELFPAY | PROVIDERS: PCP Family Medicine; Visit Provider Physician Assistant | DX: Z98.1 Arthrodesis status (principal) | CPT/HCPCS: 72100; 83001 ==

== ENCOUNTER → 2023-02-27 09:58 | Outpatient (BNVA) | payer BC, SELFPAY | PROVIDERS: PCP Family Medicine; Visit Provider Physician Assistant | DX: Z98.1 Arthrodesis status (principal) | CPT/HCPCS: 72100 ==

== ENCOUNTER 2023-03-20 19:03 | Observation (INO) | payer BC, SELFPAY ==
[2023-03-20 19:27] VITALS: BP 157/83; PULSE 117; RESP 15; TEMP 36.6; O2SAT 93
[2023-03-20 19:43] VITALS: BMI 42.4
[2023-03-20 19:53] VITALS: RESP 16
[2023-03-20] MEDS: morphine 4 mg/mL SDV 1 mL 2 MG IVP (19:53)
[2023-03-20 23:12] VITALS: BP 119/59; PULSE 111; RESP 15; TEMP 36.9; O2SAT 94
[2023-03-21 03:30] VITALS: BP 143/80; PULSE 100; RESP 14; TEMP 36.6; O2SAT 91
[2023-03-21] MEDS: HYDROcodone-acetaminophen 5-325 mg Tablet PO ×3 (03:39→12:33)
--- NOTE | 2023-03-21 06:49 | XR_ITS ---
WS: [id number] Right arm and humerus, 2 views, 03/21/2023 Clinical Data: fall Comparison: None. Findings: There is a comminuted fracture of the junction of the right humeral head and neck. The shaft of the h umerus is normal. The soft tissues are unremarkable. There is widening of the AC joint from a possibl e distal resection. Impression: 1. Comminuted slightly impacted fracture of the right humeral head and neck. 2. Widening of the right AC joint
--- NOTE | 2023-03-21 06:49 | XR_ITS ---
WS: [id number] Left arm and humerus, 2 views, 03/21/2023 Clinical Data: fall Comparison: None. Findings: There is a fracture of the junction of the left humeral head and neck. No displacement is seen. The s oft tissues are normal. The AC joint is intact. Impression: Fracture of the left humeral head and neck.
--- NOTE | 2023-03-21 06:59 | P.HP_ITS ---
Providers/Chief Complaint Admitting Physician: Alli Tobias DO Primary Care Provider: Kedar Rubi MD Chief Complaint: Bilateral shoulder fractures History of Present Illness Mei Chase is a 47 year old female who was on a girls trip to [place] when she tripped on a curb falling sustaining injury to both shoulders and face. She presented to the emergency room in [place] where x-rays confirmed fractures in both humerus's. She was medevac to back to the [facility]. No x-rays accompanied her on the [facility]. She was evaluated in room 271 with shoulder slings on both arms continues to have pain over both shoulders. Any movement of her shoulders has made this much worse. She describes a sharp stabbing pain with spasming pain. She denies any vision changes denies any headaches. Denies any neck or back pain. She denies any wrist pain hip pain knee or ankle pain. Most of her pain is localized to both shoulders. She is right-hand dominant. Review of Systems General: Reports: 10 or more systems reviewed and unremarkable except in HPI and below Const: Denies: fever(s), chills or body aches Card: Denies: chest pain or orthopnea Resp: Denies: dyspnea, productive cough or wheezing GI: Denies: abdominal pain, nausea or vomiting Musc: Reports: joint pain, joint swelling and limited range of motion Skin/Breast: Denies: changes in skin color or dry skin Neuro: Denies: numbness in extremities or weakness in extremities Psych: Denies: anxiety Anthony/Lymph: Denies: easy bruising or easy bleeding Medications/Allergies Home Medications Medication Instructions Recorded Confirmed Last Taken Type vismodegib 150 mg capsule 150 mg PO DIRECTED #21 caps 02/06/22 03/20/23 03/15/23 Rx (Erivedge) esomeprazole magnesium 20 mg 20 mg PO DAILY PRN Acid Reflux 04/22/22 03/20/23 10/08/22 History capsule,delayed release (Nexium) cetirizine 10 mg tablet (Zyrtec) 10 mg PO DAILY PRN Allergy Symptoms 04/24/22 03/20/23 08/21/22 06:30 History mecobalamin (vitamin B12) 1,000 1,000 mcg sublingual DAILY 06/17/22 03/20/23 03/14/23 History mcg disintegrating tablet,sublingual Bone Growth Stimulator E0748 #1 ea 08/05/22 02/27/23 Unknown Rx calcium carbonate 600 mg calcium 600 mg PO DAILY 08/29/22 03/20/23 10/08/22 History (1,500 mg) tablet (Calcium) cholecalciferol (vitamin D3) 25 25 mcg PO DAILY 08/29/22 03/20/23 03/15/23 History mcg (1,000 unit) capsule hydrocodone 5 mg-acetaminophen 325 1 - 2 tab PO .q4-6hrs PRN Postop 10/03/22 03/20/23 2 Weeks Ago Rx mg tablet pain 5 days #40 tabs ~03/06/23 alprazolam 0.25 mg tablet (Xanax) 0.25 mg PO BID PRN Anxiety #60 tabs 10/28/22 03/20/23 Unknown Rx bupropion HCl 150 mg 24 hr tablet, See Rx Instructions .Route 02/27/23 03/20/23 03/16/23 Rx extended release .COMPLEX #90 tabs escitalopram oxalate 10 mg tablet See Rx Instructions .Route 02/27/23 03/20/23 03/16/23 Rx .COMPLEX #90 tabs tramadol 50 mg tablet 50 mg PO Q8H PRN pain #30 tabs 02/27/23 03/20/23 03/15/23 Rx Allergies Allergy/AdvReac Type Severity Reaction Status Date / Time azithromycin [From Zithromax] Allergy rash Verified 02/27/23 10:00 PFSH Acute PFSH: Medical History (Updated 03/21/23 @ 07:03 by Kuldeep Guadarrama PA-C) BCC (basal cell carcinoma of skin) Depression Encounter for wellness examination History of non-Hodgkin's lymphoma Hodgkins lymphoma Hyperlipidemia Oligoarthritis Osteoarthritis of knees, bilateral Thyroid nodule Surgical History (Updated 03/21/23 @ 07:03 by Kuldeep Guadarrama PA-C) H/O bladder repair surgery History of hysterectomy History of lumbar fusion History of shoulder surgery Status post lumbar spinal fusion Family History Mother Colon cancer, Onset Age: 65 Other CAD (coronary artery disease) Cancer Denies family history of Rheumatoid arthritis Ovarian cancer Diabetes Lupus Clotting disorder Heart disease Hyperlipidemia Chronic kidney disease (CKD) Breast cancer Anesthesia complication Bleeding disorder Lung disease Hypertension Uterine cancer Thyroid condition Stroke Social History Smoking and tobacco/nicotine status: former use of tobacco/nicotine Second hand smoke exposure: No Alcohol intake: current Alcohol intake frequency: few times a week Alcohol type: hard liquor Substance/Drug Use: never Vitals/I&O/Wt Last Vital Signs Temp 97.8 F 03/21/23 03:30 Pulse 100 03/21/23 03:30 Resp 14 03/21/23 03:30 BP 143/80 03/21/23 03:30 Pulse Ox 91 03/21/23 03:30 O2 Del Method Room Air 03/21/23 03:30 03/20/23 03/20/23 03/21/23 14:59 22:59 06:59 Intake Total 240 / 240 Balance 240 / 240 Weight last 48 hrs Weight 232 lb Physical Exam Narrative: She is alert and orient x3 she has good general appearance normal mood and affect. She has evidence of ecchymosis around both eyes and jaw and nose from the fall. No evidence of any lacerations or abrasions. She has palpable pain over both shoulders travels down both arms denies any palpable elbow pain she can flex and extend both wrists which appears neurovascular intact moves all digits no palpable pain around either wrist. Fingers are warm good cap refill radial pulses are palpable. No palpable pain in the cervical thoracic or lumbar spine full range of motion of her cervical spine negative logroll bilaterally flex and extends both knees and dorsiflex and plantarflex both feet dorsalis pedis posterior pulses are palpable calves are supple. HENMT: OTHER: Ecchymosis around both eyes nose from the fall Resp: COMMON NORMALS: normal respiratory effort Cardio: COMMON NORMALS: regular rate and regular rhythm GI: COMMON NORMALS: Soft to palpation and non-tender : COMMON NORMALS: Yes no CVA tenderness Psych: COMMON NORMALS: mental status grossly normal and cooperative A&P Assessment and plan (1) Shoulder pain, bilateral: At this point we will obtain radiographs AP and lateral of both humerus is to gain better understanding of the nature of her fractures. Continue arm sling's continue ice as needed. SCDs for DVT prophylaxis. Incentive spirometer for pulmonary toilet. Attestations Medical Necessity Statement*: Await x-rays Coding Level of Care Code Acute Code for Chg Fwd Diagnoses Shoulder pain, bilateral M25.511; M25.512
[2023-03-21 08:00] VITALS: BP 172/92; PULSE 98; RESP 18; TEMP 36.6; O2SAT 98
[2023-03-21] MEDS: calcium carbonate 500 mg Chew Tablet PO (08:32)
[2023-03-21] MEDS: buPROPion XL (24 HR) 150 mg Tablet PO (08:32)
[2023-03-21] MEDS: cyanocobalamin 1,000 mcg Tablet 1000 MCG PO (08:32)
[2023-03-21] MEDS: escitalopram 10 mg Tablet PO (08:32)
[2023-03-21] MEDS: cholecalciferol (vitamin D3) 1,000 unit Tablet 1000 UNIT PO (08:33)
--- NOTE | 2023-03-21 09:28 | PC.CHAP ---
Pastoral Care Encounter/Spiritual Assessment Type of Contact [] Declined english division chair visit [] Patient/Family/Request visit [] Outpatient visit [] Follow-up visit [] Physician referral [] Code/Alert [x] Routine visit [] Staff referral [] Actively dying [] Patient sleeping [] Family support [] [] Out of room [] Palliative care [] [] Receiving care in room [] Pre-surgical visit [] Trauma [] Long length of stay [] ICU visit [] Other: Relational/Emotional Strength [x] Patient feels connected with others/family/visitors/staff [] Distress [] Loneliness/isolation [] Abandonment Spirituality of Patient [x] Person of Latoya [] Attends Mormonism of their Latoya [x] Believes in Prayer [] Reads Bible or Anabaptism materials [] There are Spiritual issues to be addressed 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 Interventions [x] Prayer [x] Active listening [] Non-anxious presence [x] Spiritual/emotional support [] Crisis/trauma care [] Spiritual counseling [] Bereavement support [] Provided bereavement packet [] Provided Bible/devotional materials [] Provided toy/stuffed animal, coloring book to patient or family member [] Provided Communion [] Anointing/[place] [] Salvation [] Completed spiritual assessment [] Other: Impact on Illness or Injury [] Angry [] Fearful [] Anxious [] Often cries [] Exhaustion [] Unable to work [] Unable to attend yazidism [] Unable to walk/stand [] Unable to read [] Unable to drive [] Unable to eat/drink [] Unable to sleep [] Unable to be with family [] Patient intubated [] Other: Summary Time spent with patient 5 min
[2023-03-21 12:00] VITALS: BP 162/98; PULSE 97; RESP 16; TEMP 36.7; O2SAT 98
--- NOTE | 2023-03-24 13:01 | P.DS_ITS ---
Discharge Providers Date of Admission: 03/20/23 19:03 Date of Discharge: March 21, 2023 Attending Provider at Admission: Alli Tobias DO Attending Provider at Discharge: Alli Tobias DO Primary Care Provider: Kedar Rubi MD Diagnoses at Discharge Discharge Diagnosis (1) Shoulder pain, bilateral: Status: Acute Reason for Visit Reason for Visit: Bilateral shoulder fractures Discharge Data Studies Completed and Pending Completed Studies During Hospitalization Category [place] [id number] Routine Exams 03/21/23 06:49 [place] [id number] Routine Exams 03/21/23 06:49 Completed Vitals Last Vital Signs Temp 98.1 F 03/21/23 12:00 Pulse 97 03/21/23 12:00 Resp 16 03/21/23 12:00 BP 162/98 03/21/23 12:00 Pulse Ox 98 03/21/23 12:00 O2 Del Method Room Air 03/21/23 08:00 Discharge Plan Discharge Patient Disposition: Home Condition: Stable Prescriptions: Continued mecobalamin (vitamin B12) 1,000 mcg tablet,disintegrating 1,000 mcg sublingual QAM Rx Instructions: place tablet under tongue and allow to dissolve for at least30 secs before swallowing calcium carbonate [Calcium 600] 600 mg calcium (1,500 mg) tablet 600 mg PO QAM cholecalciferol (vitamin D3) 25 mcg (1,000 unit) capsule 25 mcg PO QAM tramadol 50 mg tablet 50 mg PO Q8H PRN (Reason: pain) Qty: 30 0RF alprazolam [Xanax] 0.25 mg tablet 0.25 mg PO BID PRN (Reason: Anxiety) Qty: 60 5RF Erivedge 150 mg capsule 150 mg PO DIRECTED Qty: 21 4RF Rx Instructions: Take 1 PO DAILY FOR 1 week then off for 3 weeks - repeat (DME) Bone Growth Stimulator E0748 See Rx Instructions .Route .MEDSUPPLY Qty: 1 0RF Rx Instructions: As directed hydrocodone-acetaminophen 5-325 mg tablet 1 - 2 tab PO .q4-6hrs PRN (Reason: Postop pain) 5 Days Qty: 40 0RF bupropion HCl 150 mg tablet extended release 24 hr See Rx Instructions .ROUTE .COMPLEX Qty: 90 3RF Dose Instruction: TAKE 1 TABLET BY MOUTH EVERY DAY IN THE MORNING Rx Instructions: TAKE 1 TABLET BY MOUTH EVERY DAY IN THE MORNING escitalopram oxalate 10 mg tablet See Rx Instructions .ROUTE .COMPLEX Qty: 90 3RF Dose Instruction: TAKE 1 TABLET BY MOUTH EVERY DAY Rx Instructions: TAKE 1 TABLET BY MOUTH EVERY DAY esomeprazole magnesium [Nexium] 20 mg Capsule,Delayed Release(Dr/Ec) 20 mg PO QAM PRN (Reason: Acid Reflux) cetirizine [Zyrtec] 10 mg Tablet 10 mg PO QAM PRN (Reason: Allergy Symptoms) No Action hydrocodone-acetaminophen 5-325 mg tablet 1 - 2 tab PO .Q4-6H PRN (Reason: pain) 7 Days Qty: 40 0RF Discharge Orders: Discharge Order (Routine); Ordered 03/21/23 Ordered By: Alli Tobias Referrals: Alli Tobias, [Physician] - 2 weeks (We have notified your physician's clinic of the need for a follow-up appointment to be scheduled. If you have not heard from them within the next 2 business days, please call them directly. You may also reach out to our extrusion die repair manager at [phone] and she can as sist you.) Kedar Rubi MD [Primary Care Provider] - (We have notified your physician's clinic of the need for a follow-up appointment to be scheduled. If you have not heard from them within the next 2 business days, please call them directly. You may also reach out to our extrusion die repair manager at [phone] and she can assist you.) Discharge Diet: Advance as tolerated Discharge Activity: Limit activity as instructed Patient Instructions: Hydrocodone/Acetaminophen (By mouth), Fractures - Humerus, How to Use a Sling (GEN), Opioid Safety, Sling - Wearing Activity Restrictions/Additional Instructions: NWB Bilateral upper extremity f/u ortho clinic 2 weeks Discharge Attestations Time Spent in Discharge Care*: less than 30 min Quality Metrics Clinical Quality Measures [ No reported AMI, CVA or VTE this stay] Coding Level of Care Code Acute Code for Chg Fwd Diagnoses Shoulder pain, bilateral M25.511; M25.512
== END 2023-03-21 14:53 | disposition home or self-care (01) ==
PROVIDERS: Admitting Provider Orthopaedic Surgery; PCP Family Medicine; Visit Provider Orthopaedic Surgery
DX: M25.511 Pain in right shoulder (principal); M25.512 Pain in left shoulder; E78.5 Hyperlipidemia, unspecified; Z98.1 Arthrodesis status
CPT/HCPCS: 73060; 97166; G0378; G0379; J2270

== ENCOUNTER → 2023-04-01 10:48 | Outpatient (BNVA) | payer BC, SELFPAY | PROVIDERS: PCP Family Medicine; Visit Provider Physician Assistant | DX: S42.291D Other displaced fracture of upper end of right humerus, subsequent encounter for fracture with routine healing; S42.202D Unspecified fracture of upper end of left humerus, subsequent encounter for fracture with routine healing; X58.XXXD Exposure to other specified factors, subsequent encounter | CPT/HCPCS: 73060 ==

== ENCOUNTER → 2023-04-15 08:35 | Outpatient (BNVA) | payer BC, SELFPAY | PROVIDERS: PCP Family Medicine; Visit Provider Physician Assistant | DX: S42.211A Unspecified displaced fracture of surgical neck of right humerus, initial encounter for closed fracture (principal); S42.212A Unspecified displaced fracture of surgical neck of left humerus, initial encounter for closed fracture; X58.XXXA Exposure to other specified factors, initial encounter | CPT/HCPCS: 73030 ==

== ENCOUNTER 2023-04-24 10:17 | Outpatient (RCR) | payer BC, SELFPAY | END 2023-05-08 23:59 | disposition home or self-care (01) | LOC: SPT 10:17 | PROVIDERS: PCP Family Medicine; Visit Provider Physician Assistant | DX: M54.50 Low back pain, unspecified (principal); M25.551 Pain in right hip | CPT/HCPCS: 97110; 97161 ==

== ENCOUNTER 2023-05-09 06:00 | Outpatient (RCR) | payer BC, SELFPAY | END 2023-06-08 23:59 | disposition home or self-care (01) | LOC: SPT 06:00 | PROVIDERS: PCP Family Medicine; Visit Provider Physician Assistant | DX: S42.201D Unspecified fracture of upper end of right humerus, subsequent encounter for fracture with routine healing (principal); S42.202D Unspecified fracture of upper end of left humerus, subsequent encounter for fracture with routine healing; X58.XXXD Exposure to other specified factors, subsequent encounter | CPT/HCPCS: 97110 ==

== ENCOUNTER → 2023-05-20 08:31 | Outpatient (BNVA) | payer BC, SELFPAY | PROVIDERS: PCP Family Medicine; Visit Provider Physician Assistant | DX: S42.291D Other displaced fracture of upper end of right humerus, subsequent encounter for fracture with routine healing (principal); S42.292D Other displaced fracture of upper end of left humerus, subsequent encounter for fracture with routine healing; W19.XXXD Unspecified fall, subsequent encounter | CPT/HCPCS: 73060 ==

== ENCOUNTER 2023-06-09 06:00 | Outpatient (RCR) | payer BC, SELFPAY | END 2023-07-09 23:59 | disposition home or self-care (01) | LOC: SPT 06:00 | PROVIDERS: PCP Family Medicine; Visit Provider Physician Assistant | DX: S42.201D Unspecified fracture of upper end of right humerus, subsequent encounter for fracture with routine healing (principal); S42.202D Unspecified fracture of upper end of left humerus, subsequent encounter for fracture with routine healing; X58.XXXD Exposure to other specified factors, subsequent encounter | CPT/HCPCS: 97110 ==

== ENCOUNTER → 2023-06-10 14:24 | Outpatient (BNVA) | payer BC, SELFPAY | PROVIDERS: PCP Family Medicine; Visit Provider Physician Assistant | DX: S42.291D Other displaced fracture of upper end of right humerus, subsequent encounter for fracture with routine healing (principal); S42.202D Unspecified fracture of upper end of left humerus, subsequent encounter for fracture with routine healing; X58.XXXD Exposure to other specified factors, subsequent encounter | CPT/HCPCS: 73060 ==

== ENCOUNTER 2023-07-10 06:00 | Outpatient (RCR) | payer BC, SELFPAY | END 2023-08-07 23:59 | disposition home or self-care (01) | LOC: SPT 06:00 | PROVIDERS: PCP Family Medicine; Visit Provider Physician Assistant | DX: S42.201D Unspecified fracture of upper end of right humerus, subsequent encounter for fracture with routine healing (principal); S42.202D Unspecified fracture of upper end of left humerus, subsequent encounter for fracture with routine healing; X58.XXXD Exposure to other specified factors, subsequent encounter | CPT/HCPCS: 97110 ==

== ENCOUNTER → 2023-08-12 08:55 | Outpatient (BNVA) | payer BC, SELFPAY | PROVIDERS: PCP Family Medicine; Visit Provider Orthopaedic Surgery | DX: Z98.1 Arthrodesis status (principal) | CPT/HCPCS: 72100 ==

== ENCOUNTER 2023-08-27 11:38 | Outpatient (RCR) | payer BC, SELFPAY | END 2023-09-07 23:59 | disposition home or self-care (01) | LOC: SPT 11:38 | PROVIDERS: Visit Provider Orthopaedic Surgery | DX: Z98.1 Arthrodesis status (principal) | CPT/HCPCS: 97110; 97161 ==

== ENCOUNTER 2023-09-08 06:00 | Outpatient (RCR) | payer BC, SELFPAY | END 2023-10-07 23:59 | disposition home or self-care (01) | LOC: SPT 06:00 | PROVIDERS: Visit Provider Orthopaedic Surgery | DX: M43.26 Fusion of spine, lumbar region (principal) | CPT/HCPCS: 97110 ==

== ENCOUNTER → 2023-10-22 08:30 | Outpatient (BNVA) | payer BC, SELFPAY | PROVIDERS: PCP Family Medicine; Visit Provider Family Medicine | DX: F32.A Depression, unspecified (principal); E78.5 Hyperlipidemia, unspecified; D72.829 Elevated white blood cell count, unspecified; Z85.72 Personal history of non-Hodgkin lymphomas; E11.9 Type 2 diabetes mellitus without complications | CPT/HCPCS: 80053; 80061; 84439; 84443; 85025 ==

== ENCOUNTER 2023-12-31 14:42 | Outpatient (CLI) | payer BC, SELFPAY ==
--- NOTE | 2023-12-31 15:00 | MM_ITS ---
WS: [id number] BILATERAL 3D TOMOSYNTHESIS DIGITAL SCREENING MAMMOGRAM WITH CAD CLINICAL INFORMATION: Z12.31 - Encounter for screening mammogram for malignant ... HISTORY: Screening mammogram. No current complaints. COMPARISON: 2021 TECHNIQUE: Bilateral CC and MLO views. FINDINGS: Fatty-replaced breasts bilaterally. No suspicious focal mass, asymmetry, calcifications, or mainframe architect ural distortion. No evidence of malignancy. Lucent centered calcification in RIGHT breast. A few inci dental tiny punctate calcifications. MM/[place] [id number] IMPRESSION: BI-RADS: 2-Benign FOLLOW UP: 1 Year Follow-up Recommend return to annual screening mammography.
== END 2023-12-31 14:43 | disposition home or self-care (01) ==
LOC: RAD 14:42
PROVIDERS: PCP Family Medicine; Visit Provider Obstetrics & Gynecology
DX: Z12.31 Encounter for screening mammogram for malignant neoplasm of breast (principal); R92.313 Mammographic fatty tissue density, bilateral breasts; R92.1 Mammographic calcification found on diagnostic imaging of breast
CPT/HCPCS: 77063; 77067; 83001

== ENCOUNTER 2024-04-28 15:49 | Outpatient (CLI) | payer BC, SELFPAY ==
--- NOTE | 2024-04-28 16:00 | USR_ITS ---
PROCEDURE INFORMATION: Exam: US Soft Tissue Head and Neck, Thyroid Exam date and time: 04/28/2024 3:55 PM Age: 48 years old Clinical indication: Condition or disease; Thyroid disorder; Other: Not specified; Additional info: F/u TECHNIQUE: Imaging protocol: Real-time ultrasound scan of the neck with image documentation. Exam focused on the thyroid. COMPARISON: [place] thyroid [id number] 04/29/2022 8:45 AM FINDINGS: Right thyroid lobe: Subcentimeter nodules noted. Left thyroid lobe: Subcentimeter nodules and cysts noted. Isthmus: No nodules. Salivary glands: Unremarkable submandibular glands. Lymph nodes: No lymphadenopathy identified. US/US thyroid [id number] IMPRESSION: 1. Bilateral subcentimeter nodules. No FNA recommended. 2. No lymphadenopathy identified.
== END 2024-04-28 15:50 | disposition home or self-care (01) ==
LOC: RAD 15:49
PROVIDERS: PCP Family Medicine; Visit Provider Family Medicine
DX: E04.2 Nontoxic multinodular goiter (principal)
CPT/HCPCS: 76536

== ENCOUNTER → 2024-10-20 08:29 | Outpatient (BNVA) | payer BC, SELFPAY | PROVIDERS: PCP Family Medicine; Visit Provider Family Medicine | DX: F32.A Depression, unspecified (principal); E78.5 Hyperlipidemia, unspecified | CPT/HCPCS: 80053; 80061; 85025 ==

== ENCOUNTER → 2025-04-21 08:57 | Outpatient (BNVA) | payer BC, SELFPAY | PROVIDERS: PCP Family Medicine; Visit Provider Family Medicine | DX: E78.5 Hyperlipidemia, unspecified (principal); F32.A Depression, unspecified; Z85.72 Personal history of non-Hodgkin lymphomas | CPT/HCPCS: 80048; 80061; 85025 ==

== ENCOUNTER 2025-05-02 13:41 | Outpatient (CLI) | payer BC, SELFPAY ==
--- NOTE | 2025-05-02 14:00 | USR_ITS ---
PROCEDURE INFORMATION: Exam: US Soft Tissue Head and Neck, Thyroid Exam date and time: 05/02/2025 1:50 PM Age: 49 years old Clinical indication: Enlarged lymph nodes; Thyroid nodule; Additional info: F/u TECHNIQUE: Imaging protocol: Real-time ultrasound scan of the neck with image documentation. Exam focused on the thyroid. COMPARISON: [place] thyroid [id number] 04/28/2024 3:55 PM FINDINGS: Right thyroid lobe: No nodules. Heterogenous 3.7 cm x 1.5 cm x 1.3 cm Left thyroid lobe: Measures 3.4 cm x 1.2 cm x 1.2 cm. Hypoechoic cyst 6 mm x 5 mm x 6 mm Cystic, hypoechoic, smooth borders, round, no calcifications TR 2 Isthmus: No nodules. measures 3 mm US/US thyroid [id number] IMPRESSION: 1. Left thyroid lobe cyst with benign morphology 2. Otherwise Unremarkable thyroid.
== END 2025-05-02 13:42 | disposition home or self-care (01) ==
LOC: RAD 13:42
PROVIDERS: PCP Family Medicine; Visit Provider Family Medicine
DX: E04.1 Nontoxic single thyroid nodule (principal)
CPT/HCPCS: 76536